=== PATIENT | female | born 1995 | race Caucasian/White ===

== ENCOUNTER 2017-11-27 02:50 | Emergency (ER) | payer OTHER, SELFPAY ==
[2017-11-27] MEDS ORDERED: METHYLPREDNISOLONE 125 MG INJ ONE (03:04)
[2017-11-27] MEDS ORDERED: FAMOTIDINE 20 MG/2 ML VIAL IV ONE (03:04)
[2017-11-27] MEDS ORDERED: NA CHLORIDE 0.9% 500 ML ONE (03:04)
--- NOTE | 2017-11-27 04:28 | ER ---
Nurse's Notes [facility] Name: Aric Banda Age: 22 yrs Sex: Female : 1995 Arrival Date: 11/27/2017 Time: 02:54 Bed 8 Private MD: Diagnosis: Acute allergic reaction to nuts Presentation: 11/27 03:11 Presenting complaint: Patient states: patient was at work and didn't realize that a ao candy she was eating was made with peanuts. Patient has nuts allegories. Patient started the develop a allergic reaction. tongue started to get swollen. Patient received 75 mg of Benadryl before she was sent to the hospital. Transition of care: patient was not received from another setting of care. Onset: The symptoms/episode began/occurred 3 hour(s) ago. Anaphylaxis evaluation, the patient reports or I have noted the following symptoms which indicate a significant risk of anaphylaxis: angioedema. Onset of symptoms was November 27, 2017 at 00:55. Initial Sepsis Screen: Does the patient meet any 2 criteria? No. Patient's initial sepsis screen is negative. Does the patient have a suspected source of infection? No. Patient's initial sepsis screen is negative. Care prior to arrival: Medication(s) given: Benadryl 75 mg. 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 - Social history:: Smoking status: Patient uses tobacco products, smokes one-half pack cigarettes per day, Patient uses alcohol, Patient/guardian denies using street drugs. - Family history:: not pertinent. - Hospitalizations: : No recent hospitalization is reported. Screenin:19 Abuse screen: Denies threats or abuse. Denies injuries from another. Nutritional ao screening: No deficits noted. Tuberculosis screening: No symptoms or risk factors identified. Fall Risk None identified. Assessment: 03:20 General: Appears in no apparent distress. comfortable, Behavior is calm, cooperative, ao appropriate for age. Pain: Denies pain. Neuro: Level of Consciousness is awake, alert, obeys commands, Oriented to person, place, time, situation, Appropriate for age Moves all extremities. Speech is normal. Cardiovascular: Capillary refill < 3 seconds Patient's skin is warm and dry. Respiratory: Airway. Respiratory: Airway is patent Respiratory effort is even, unlabored, Respiratory pattern is regular, Breath sounds are clear bilaterally. GI: Abdomen is non-distended. : No signs and/or symptoms were reported regarding the genitourinary system. EENT: No signs and/or symptoms were reported regarding the EENT system. Derm: Rash noted that is Face and other body parts. Musculoskeletal: No signs and/or symptoms reported regarding the musculoskeletal system. 04:00 Reassessment: Patient appears in no apparent distress at this time. Patient and/or ao family updated on plan of care and expected duration. Pain level reassessed. Patient is alert, oriented x 3, equal unlabored respirations, skin warm/dry/pink. Patient ambulated to the bathroom. Patient states that she is feeling better at this time. 04:41 Reassessment: Dc instructions given to patient and significant other. Patient agree ao with the POC and to follow up with PCP. Patient agree to get Epi pen and how to use it. Vital Signs: 03:12 BP 138 / 83; Pulse 94; Resp 18; Temp 97.2(TE); Pulse Ox 100% on R/A; Weight 54.43 kg ao (R); Height 5 ft. 3 in. (160.02 cm) (R); Pain 0/10; 04:00 BP 109 / 77; Pulse 87; Resp 16; Pulse Ox 100% on R/A; Pain 0/10; ao 03:12 Body Mass Index 21.26 (54.43 kg, 160.02 cm) ao ED Course: 02:54 Patient arrived in ED. al2 02:57 Matthew Shelton MD is Attending Physician. rn 03:01 Duran Alonso RN is Primary Nurse. ao 03:06 Inserted saline lock: 20 gauge in right antecubital area, using aseptic technique. mt 03:16 Triage completed. ao 03:21 Patient has correct armband on for positive identification. Pulse ox on. NIBP on. ao 03:22 Arm band placed on right wrist. Patient placed in an exam room, on a stretcher, on ao interventional cardiologist, on pulse oximetry, Patient notified of wait time. 04:42 No provider procedures requiring assistance completed. IV discontinued, intact, ao bleeding controlled, No redness/swelling at site. Pressure dressing applied. Administered Medications: 03:09 Drug: Pepcid 20 mg Route: IVP; Site: right antecubital; ao 04:43 Follow up: Response: No adverse reaction ao 03:10 Drug: SOLU-Medrol 125 mg Route: IVP; Site: right antecubital; ao 04:43 Follow up: Response: No adverse reaction ao 03:10 Drug: NS 0.9% 500 ml Route: IV; Rate: bolus; Site: right antecubital; ao 04:43 Follow up: IV Status: Completed infusion; IV Intake: 500ml ao Intake: 04:43 IV: 500ml; Total: 500ml. ao Outcome: 04:27 Discharge ordered by . rn 04:42 Discharged to home ambulatory. ao 04:42 Condition: stable 04:42 Discharge instructions given to patient, significant other, Instructed on discharge instructions, follow up and referral plans. Demonstrated understanding of instructions, follow-up care, medications, Prescriptions given X 2. 04:43 Patient left the ED. ao Signatures: Matthew Shelton MD MD rn Ortiz, Alex RN RUBY Dunaway, Mari Bernal, Joann birmingham
--- NOTE | 2017-11-27 04:28 | EDPHYS ---
Physician Documentation [facility] Name: Aric Banda Age: 22 yrs Sex: Female : 1995 Arrival Date: 11/27/2017 Time: 02:54 Bed 8 Private MD: ED Physician Matthew Shelton HPI: 11/27 03:41 This 22 yrs old Female presents to ER via Ambulatory with complaints of rn Allergic Reaction, SWOLLEN TONGUE, Hives. 03:41 The patient presents with itching, rash, swelling of the tongue. Onset: The rn symptoms/episode began/occurred just prior to arrival. Associated signs and symptoms: Pertinent positives: hives, swelling. Possible causes: nuts. At home the patient or guardian has treated the symptoms with Benadryl. Severity of symptoms: At their worst the symptoms were mild in the emergency department the symptoms are unchanged. The patient has experienced a previous episode. The patient has not recently seen a physician. 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 - Social history:: Smoking status: Patient uses tobacco products, smokes one-half pack cigarettes per day, Patient uses alcohol, Patient/guardian denies using street drugs. - Family history:: not pertinent. - Hospitalizations: : No recent hospitalization is reported. ROS: 03:41 Constitutional: Negative for fever, chills, and weight loss, Eyes: Negative for injury, rn pain, redness, and discharge, ENT: + swollen tongue Neck: Negative for injury, pain, and swelling, Cardiovascular: Negative for chest pain, palpitations, and edema, Respiratory: Negative for shortness of breath, cough, wheezing, and pleuritic chest pain, Abdomen/GI: Negative for abdominal pain, nausea, vomiting, diarrhea, and constipation, Back: Negative for injury and pain, MS/Extremity: Negative for injury and deformity, Skin: + hives Neuro: Negative for headache, weakness, numbness, tingling, and seizure. Exam: 03:41 Constitutional: This is a well developed, well nourished patient who is awake, alert, rn and in no acute distress. Head/Face: Normocephalic, atraumatic. Eyes: Pupils equal round and reactive to light, extra-ocular motions intact. Lids and lashes normal. Conjunctiva and sclera are non-icteric and not injected. Cornea within normal limits. Periorbital areas with no swelling, redness, or edema. ENT: Mild tongue swelling, no stridor, no uvula swelling Neck: Trachea midline, no thyromegaly or masses palpated, and no cervical lymphadenopathy. Supple, full range of motion without nuchal rigidity, or vertebral point tenderness. No Meningismus. Cardiovascular: Regular rate and rhythm with a normal S1 and S2. No gallops, murmurs, or rubs. Normal PMI, no JVD. No pulse deficits. Respiratory: Lungs have equal breath sounds bilaterally, clear to auscultation and percussion. No rales, rhonchi or wheezes noted. No increased work of breathing, no retractions or nasal flaring. Abdomen/GI: Soft, non-tender, with normal bowel sounds. No distension or tympany. No guarding or rebound. No evidence of tenderness throughout. MS/ Extremity: Pulses equal, no cyanosis. Neurovascular intact. Full, normal range of motion. Equal circumference. Neuro: Awake and alert, GCS 15, oriented to person, place, time, and situation. Cranial nerves II-XII grossly intact. Motor strength 5/5 in all extremities. Sensory grossly intact. Cerebellar exam normal. Normal gait. Vital Signs: 03:12 BP 138 / 83; Pulse 94; Resp 18; Temp 97.2(TE); Pulse Ox 100% on R/A; Weight 54.43 kg ao (R); Height 5 ft. 3 in. (160.02 cm) (R); Pain 0/10; 04:00 BP 109 / 77; Pulse 87; Resp 16; Pulse Ox 100% on R/A; Pain 0/10; ao 03:12 Body Mass Index 21.26 (54.43 kg, 160.02 cm) ao MDM: 02:57 Patient medically screened. rn 04:09 Differential diagnosis: angioedema, urticaria. Data reviewed: vital signs, nurses rn notes, and as a result, I will discharge patient. Counseling: I had a detailed discussion with the patient and/or guardian regarding: the historical points, exam findings, and any diagnostic results supporting the discharge/admit diagnosis, the need for outpatient follow up, to return to the emergency department if symptoms worsen or persist or if there are any questions or concerns that arise at home. Response to treatment: the patient's symptoms have markedly improved after treatment, and as a result, I will discharge patient. 11/27 04:06 Order name: Urine Dipstick--Ancillary (enter results) em1 11/27 04:06 Order name: Urine --Ancillary (enter results) em1 11/27 03:01 Order name: IV Start; Complete Time: 03:02 rn 11/27 04:02 Order name: Urine Dipstick-Ancillary (obtain specimen); Complete Time: 04:03 ao 11/27 04:02 Order name: Urine Test (obtain specimen); Complete Time: 04:02 ao Administered Medications: 03:09 Drug: Pepcid 20 mg Route: IVP; Site: right antecubital; ao 04:43 Follow up: Response: No adverse reaction ao 03:10 Drug: SOLU-Medrol 125 mg Route: IVP; Site: right antecubital; ao 04:43 Follow up: Response: No adverse reaction ao 03:10 Drug: NS 0.9% 500 ml Route: IV; Rate: bolus; Site: right antecubital; ao 04:43 Follow up: IV Status: Completed infusion; IV Intake: 500ml ao Disposition: 11/27/17 04:27 Discharged to Home. Impression: Acute allergic reaction to nuts. - Condition is Stable. - Discharge Instructions: Food Allergy, Food Allergy and Anaphylaxis. - Prescriptions for Prednisone 20 mg Oral Tablet - take 3 tablet by ORAL route once daily for 5 days; 15 tablet. EpiPen 0.3 mg Injection auto- injector - inject 1 pen by INTRAMUSCULAR route one time Inject into the outer portion of the thigh, through clothing if necessary. Indicated in the emergency treatment of allergic reactions; 2 packet. - Medication Reconciliation Form, Thank You Letter, Antibiotic Education, Prescription Opioid Use, Work release form, Family Work Release form. - Follow up: Private Physician; When: As needed; Reason: Recheck today's complaints, Re-evaluation by your physician. - Problem is new. - Symptoms have improved. Signatures: Dispatcher [employer] EDMatthew Patrick MD MD rn Ortiz, Alex, RN RN ao Corrections: (The following items were deleted from the chart) 04:43 04:27 11/27/2017 04:27 Discharged to Home. Impression: Acute allergic reaction to nuts. ao Condition is Stable. Forms are Medication Reconciliation Form, Thank You Letter, Antibiotic Education, Prescription Opioid Use. Follow up: Private Physician; When: As needed; Reason: Recheck today's complaints, Re-evaluation by your physician. Problem is new. Symptoms have improved. rn
[2017-11-27 06:46] LABS: Urine Blood NEGATIVE (NEG); Urine Glucose NEGATIVE (NEG); Urine Protein NEGATIVE (NEG)
== END 2017-11-27 04:43 | disposition home or self-care (01) ==
LOC: ER 02:50
DX: R21 Rash and other nonspecific skin eruption (principal); Z91.018 Allergy to other foods; F17.210 Nicotine dependence, cigarettes, uncomplicated
CPT/HCPCS: 81003; 81025; 96361; 96374; 96375; 99284; J2930

== ENCOUNTER 2018-07-02 22:45 | Emergency (ER) | payer BC, SELFPAY ==
--- OUTSIDE RECORDS SUMMARY | 2018-07-02 22:47 | XMS REPORT | Continuity of Care Document ---
:1995 Author Organization Interface Problems Problem Status Onset Classification Date Comments Source Date Reported Discharge 07/19/2016 The Diagnosis: 6 [place] Vaginal bleeding VAGINAL Active The BLEEDING 6 [place] Medications Medication Details Route Status Patient Ordering Order Source Instructions Provider Date Allergies, Adverse Reactions, Alerts Substance Category Reaction Severity Reaction Status Date Comments Source type Reported Food Nuts Assertion Drug Active The allergy [place] Immunizations Immunization Date Given Site Status Last Updated Comments Source Results Order Results Value Reference Date Interpretation Comments Source Name Range URINE UA WBC null 0 - 5 The AND 2015 [place] STOOL URINE UA Sq Epi Occasional Few /LPF The AND /LPF 2015 [place] STOOL URINE Micro? Performed The AND 2015 [place] STOOL *NA* (07/16/16 1:27 AM) URINE UA Mucus Few /LPF None Seen The AND /LPF 2015 [place] STOOL URINE UA RBC 2 /HPF 0 - 2 The AND 2015 [place] STOOL URINE UA Color Yellow Yellow The AND 2015 [place] STOOL *NA* (07/16/16 1:27 AM) URINE UA Turbidity Clear Clear The AND [place] STOOL (07/16/16 1:27 AM) URINE UA Glucose Negative Negative The AND mg/dL mg/dL 2015 [place] STOOL URINE UA Ketones Negative Negative The AND mg/dL mg/dL 2015 [place] STOOL URINE UA Spec Grav 1.019 <=1.030 The AND 2015 [place] STOOL URINE UA pH 6.5 5.0 - 8.0 The AND 2015 [place] STOOL URINE UA Protein Negative Negative The AND mg/dL mg/dL 2015 [place] STOOL URINE UA Leuk Est Negative Negative The AND [place] STOOL (07/16/16 1:27 AM) URINE UA Bili Negative Negative The AND 2016 [place] STOOL *NA* (07/16/16 1:27 AM) URINE UA Blood Trace Negative The AND 2016 [place] STOOL *ABN* (07/16/16 1:27 AM) URINE UA 3.0 mg/dL 0.1 - 1.0 The AND Urobilinogen 2016 [place] STOOL URINE UA Nitrite Negative Negative The AND 2015 [place] STOOL (07/16/16 1:27 AM) URINE U Preg Negative Negative The CHEM 2015 [place] (07/16/16 1:27 AM) Vital Signs Vital Sign Value Date Comments Source Weight 54.545 07/16/2016 [place] Height 157.48 cm 07/16/2016 [place] BMI Calculated 21.99 07/16/2016 [place] Respitory Rate 18 07/16/2016 [place] Temperature Oral (F) 98.2 F 07/16/2016 [place] Heart Rate 85 07/16/2016 [place] Systolic (mm Hg) 141 07/16/2016 [place] Diastolic (mm Hg) 80 07/16/2016 [place] Encounters Location Location Encounter Encounter Reason Attending ADM DC Status Source Details Type Number For Provider Date Date Visit [facility] Emergency [id number] Moira 07/16 07/16 [place] Parekh /2015 [facility] Procedures Procedure Code Date Perfomer Comments Source
--- OUTSIDE RECORDS SUMMARY | 2018-07-02 22:48 | XMS REPORT | Summary of Care ---
:1995 Author Organization [facility] Address [address] [place] [id number] Encounter HQ Encntr_alias(FIN) [id number] Date(s): 07/15/16 - 07/16/[address] [address]- Discharge Diagnosis: Vaginal bleeding Discharge Disposition: Home or Self Care Attending Physician: Moira Parekh MD Vital Signs Most recent to oldest [Reference Range]: 1 Height 157.48 cm (07/15/16 11:34 PM) Temperature Oral [96.4-99.1 DegF] 98.2 DegF (07/15/16 11:34 PM) Blood Pressure [90-140/60-90 mmHg] 141/80 mmHg *HI* (07/15/16 11:34 PM) Respiratory Rate [14-20 BRMIN] 18 BRMIN (07/15/16 11:34 PM) Peripheral Pulse Rate [60-100 bpm] 85 bpm (07/15/16 11:34 PM) Weight 54.545 kg (07/15/16 11:34 PM) Body Mass Index 21.99 m2 (07/15/16 11:34 PM) Problem List No data available for this section Allergies, Adverse Reactions, Alerts Substance Reaction Severity Status Food Nuts Active Medications No data available for this section Results URINE CHEM Most recent to oldest [Reference Range]: 1 U Preg [Negative] Negative (07/16/16 1:27 AM) URINE AND STOOL Most recent to oldest [Reference Range]: 1 UA Turbidity [Clear] Clear (07/16/16 1:27 AM) UA Color [Yellow] Yellow *NA* (07/16/16 1:27 AM) UA pH [5.0-8.0] 6.5 (07/16/16 1:27 AM) UA Spec Grav [<=1.030] 1.019 (07/16/16 1:27 AM) UA Glucose [Negative mg/dL] Negative mg/dL *NA* (07/16/16 1:27 AM) UA Blood [Negative] Trace *ABN* (07/16/16 1:27 AM) UA Ketones [Negative mg/dL] Negative mg/dL *NA* (07/16/16 1:27 AM) UA Protein [Negative mg/dL] Negative mg/dL (07/16/16 1:27 AM) UA Urobilinogen [0.1-1.0 mg/dL] 3.0 mg/dL *HI* (07/16/16 1:27 AM) UA Bili [Negative] Negative *NA* (07/16/16 1:27 AM) UA Leuk Est [Negative] Negative (07/16/16 1:27 AM) UA Nitrite [Negative] Negative (07/16/16 1:27 AM) UA WBC [0-5 /HPF] <1 /HPF (07/16/16 1:27 AM) UA RBC [0-2 /HPF] 2 /HPF (07/16/16 1:27 AM) UA Sq Epi [Few /LPF] Occasional /LPF *NA* (07/16/16 1:27 AM) UA Mucus [None Seen /LPF] Few /LPF *NA* (07/16/16 1:27 AM) Micro? Performed *NA* (07/16/16 1:27 AM) Immunizations No data available for this section Procedures No data available for this section Social History Social History Type Response Smoking Status Unknown if ever smoked; Exposure to Tobacco Smoke None; Cigarette Smoking Last 365 Days No; Reg Smoking Cessation Counseling No Assessment and Plan No data available for this section
--- NOTE | 2018-07-02 23:21 | EDPHYS ---
Physician Documentation [facility] Name: Aric Banda Age: 23 yrs Sex: Female : 1995 Arrival Date: 07/02/2018 Time: 22:46 Bed 20 Private MD: ED Physician Percy Tierney HPI: 07/02 23:17 This 23 yrs old Female presents to ER via Ambulatory with complaints of Hand ma2 Pain. 23:17 This 23 yrs old Female presents to ER via Ambulatory with complaints of Hand ma2 Pain. 23:17 The patient or guardian reports pain. The complaints affect the right arm. Onset: The ma2 symptoms/episode began/occurred suddenly, 1 hour(s) ago. Associated signs and symptoms: Pertinent negatives: cyanosis distally, decreased sensation distally, nausea, numbness distally, tingling distally, vomiting. Severity of symptoms: At their worst the symptoms were moderate, in the emergency department the symptoms are unchanged. The patient has not experienced similar symptoms in the past. was stretching right hand and had sudden pain at the right forearm x 30 min constant. 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 - Social history:: Smoking status: Patient uses tobacco products, smokes one-half pack cigarettes per day, Patient/guardian denies using alcohol, street drugs, The patient lives with family. - Ebola Screening: : No symptoms or risks identified at this time. - Family history:: not pertinent. ROS: 23:17 Constitutional: Negative for fever, chills, and weight loss, Eyes: Negative for injury, ma2 pain, redness, and discharge, MS/Extremity: has right fore arm tenderness over the muscles otherwise Negative for injury and deformity, Skin: Negative for injury, rash, and discoloration, Neuro: Negative for headache, weakness, numbness, tingling, and seizure. Exam: 23:17 Constitutional: This is a well developed, well nourished patient who is awake, alert, ma2 and in no acute distress. Head/Face: Normocephalic, atraumatic. Eyes: Pupils equal round and reactive to light, extra-ocular motions intact. Lids and lashes normal. Conjunctiva and sclera are non-icteric and not injected. Cornea within normal limits. Periorbital areas with no swelling, redness, or edema. Cardiovascular: Regular rate and rhythm with a normal S1 and S2. No gallops, murmurs, or rubs. Normal PMI, no JVD. No pulse deficits. Skin: Warm, dry with normal turgor. Normal color with no rashes, no lesions, and no evidence of cellulitis. MS/ Extremity: Pulses equal, no cyanosis. Neurovascular intact. Full, normal range of motion. Neuro: Awake and alert, GCS 15, oriented to person, place, time, and situation. Cranial nerves II-XII grossly intact. Motor strength 5/5 in all extremities. Sensory grossly intact. Cerebellar exam normal. Normal gait. Vital Signs: 23:04 BP 127 / 86; Pulse 90; Resp 16; Temp 98; Pulse Ox 100% on R/A; Weight 56.7 kg; Height 5 lp1 ft. 2 in. (157.48 cm); Pain 3/10; 23:04 Body Mass Index 22.86 (56.70 kg, 157.48 cm) lp1 MDM: 22:57 Patient medically screened. ma2 23:17 Differential diagnosis: contusion, abrasion, tendonitis, msk pain. Data reviewed: vital ma2 signs, nurses notes. Counseling: I had a detailed discussion with the patient and/or guardian regarding: the historical points, exam findings, and any diagnostic results supporting the discharge/admit diagnosis, the presence of at least one elevated blood pressure reading (>120/80) during this emergency department visit, the need for outpatient follow up. Response to treatment: the patient's symptoms have markedly improved after treatment. 07/02 23:17 Order name: Jin Wrap; Complete Time: 23:34 ma2 Administered Medications: 23:30 Drug: [place] 5 mg-325 mg 1 tabs Route: PO; lp1 23:35 Follow up: Response: Medication administered at discharge. lp1 Disposition: 07/02/18 23:20 Discharged to Home. Impression: Muscle spasm. - Condition is Stable. - Discharge Instructions: Musculoskeletal Pain. - Prescriptions for Tylenol- Codeine #3 300-30 mg Oral Tablet - take 2 tablet by ORAL route every 6 hours As needed; 30 tablet. - Medication Reconciliation Form, Thank You Letter, Antibiotic Education, Prescription Opioid Use form. - Follow up: Private Physician; When: Tomorrow; Reason: Continuance of care. Signatures: Jessica Rodrigues RN RN lp1 Percy Tierney MD MD ma2 Corrections: (The following items were deleted from the chart) 23:36 23:20 07/02/2018 23:20 Discharged to Home. Impression: Muscle spasm. Condition is lp1 Stable. Forms are Medication Reconciliation Form, Thank You Letter, Antibiotic Education, Prescription Opioid Use. Follow up: Private Physician; When: Tomorrow; Reason: Continuance of care. ma2
--- NOTE | 2018-07-02 23:21 | ER ---
Nurse's Notes [facility] Name: Aric Banda Age: 23 yrs Sex: Female : 1995 Arrival Date: 07/02/2018 Time: 22:46 Bed 20 Private MD: Diagnosis: Muscle spasm Presentation: 07/02 23:03 Presenting complaint: Patient states: Pain to right wrist that began suddenly; Denies lp1 any trauma; ROM intact, states knot on wrist. Transition of care: patient was not received from another setting of care. Onset of symptoms was July 02, 2018 at 22:30. Risk Assessment: Do you want to hurt yourself or someone else? Patient reports no desire to harm self or others. Initial Sepsis Screen: Does the patient meet any 2 criteria? No. Patient's initial sepsis screen is negative. Does the patient have a suspected source of infection? No. Patient's initial sepsis screen is negative. Care prior to arrival: None. 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 - Social history:: Smoking status: Patient uses tobacco products, smokes one-half pack cigarettes per day, Patient/guardian denies using alcohol, street drugs, The patient lives with family. - Ebola Screening: : No symptoms or risks identified at this time. - Family history:: not pertinent. Screenin:07 Abuse screen: Denies threats or abuse. Denies injuries from another. Nutritional lp1 screening: No deficits noted. Tuberculosis screening: No symptoms or risk factors identified. Fall Risk None identified. Assessment: 23:06 General: Appears in no apparent distress. Behavior is appropriate for age. Pain: lp1 Complains of pain in palmar aspect of right wrist Pain currently is 3 out of 10 on a pain scale. Neuro: No deficits noted. Cardiovascular: No deficits noted. Respiratory: No deficits noted. GI: No deficits noted. : No deficits noted. EENT: No deficits noted. Derm: Skin is pink, warm \T\ dry. Musculoskeletal: Circulation, motion, and sensation intact. Range of motion: limited in right wrist. Vital Signs: 23:04 BP 127 / 86; Pulse 90; Resp 16; Temp 98; Pulse Ox 100% on R/A; Weight 56.7 kg; Height 5 lp1 ft. 2 in. (157.48 cm); Pain 3/10; 23:04 Body Mass Index 22.86 (56.70 kg, 157.48 cm) lp1 ED Course: 22:46 Patient arrived in ED. al2 22:57 Percy Tierney MD is Attending Physician. ma2 23:02 Jessica Rodrigues RN is Primary Nurse. lp1 23:04 Triage completed. lp1 23:04 Arm band placed on left wrist. lp1 23:08 Patient has correct armband on for positive identification. lp1 23:08 Wound care: ice pack applied. lp1 23:30 Jin wrap to right wrist. lp1 23:35 No provider procedures requiring assistance completed. Patient did not have IV access lp1 during this emergency room visit. Administered Medications: 23:30 Drug: [place] 5 mg-325 mg 1 tabs Route: PO; lp1 23:35 Follow up: Response: Medication administered at discharge. lp1 Outcome: 23:20 Discharge ordered by . ma2 23:36 Discharged to home ambulatory, with family. lp1 23:36 Condition: good 23:36 Discharge instructions given to patient, Instructed on discharge instructions, follow up and referral plans. medication usage, Demonstrated understanding of instructions, follow-up care, medications, Prescriptions given X 1. 23:36 Patient left the ED. lp1 Signatures: Jessica Rodrigues RN RN lp1 Joann Bernal al Percy Tierney MD MD la2 Corrections: (The following items were deleted from the chart) 23:35 23:04 BP 127 / 86; Pulse 90bpm; Resp 16bpm; Pulse Ox 100% RA; 56.7 kg; Height 5 ft. 2 lp1 in.; BMI: 22.8; Pain 3/10; lp1
[2018-07-02] MEDS ORDERED: HYDROCODONE/APAP 5/325 MG TAB ONE (23:37)
== END 2018-07-02 23:36 | disposition home or self-care (01) ==
LOC: ER 22:45
DX: M62.838 Other muscle spasm (principal); F17.210 Nicotine dependence, cigarettes, uncomplicated; Z88.0 Allergy status to penicillin
CPT/HCPCS: 99284

== ENCOUNTER 2018-10-27 01:08 | Emergency (ER) | payer BC, SELFPAY ==
[2018-10-27 02:23] LABS: Absolute Lymphocytes (CBC) 4.1 K/uL (0.7-4.9); Absolute Monocytes 1.5 K/uL (0.1-1.3); Absolute Neutrophil 8.6 K/uL (1.8-8.0); Basophils % 0.7 % (0-1.3); Eosinophils % 4.5 % (0-4.4); Hematocrit 50.8 % (36.0-45.0); Lymphocytes % 27.4 % (15.3-44.8); MPV 7.7 fL (7.6-11.3); Monocytes % 10.3 % (3.3-12.3)
[2018-10-27] MEDS ORDERED: METHYLPREDNISOLONE 125 MG INJ ONE (02:36)
[2018-10-27] MEDS ORDERED: ALBUTEROL 2.5 MG/3 ML NEB SOL ONE ×2 (02:37→04:17)
[2018-10-27] MEDS ORDERED: IPRATROPIUM BROM 0.5MG/2.5ML ONE (02:37)
[2018-10-27] MEDS ORDERED: predniSONE 20 MG TAB ONE (02:37)
[2018-10-27] MEDS ORDERED: NA CHLORIDE 0.9% 1,000 ML ONE (02:37)
[2018-10-27] MEDS ORDERED: AZITHROMYCIN 500 MG INJ IVPB ONE (02:37)
[2018-10-27] MEDS ORDERED: NA CHLORIDE 0.9% 250 ML ONE (02:37)
[2018-10-27] MEDS ORDERED: CEFTRIAXONE/SWI 1gm 1 GM/10 ML SYR ONE (02:38)
[2018-10-27 02:41] LABS: ALT/SGPT 22 U/L (12-78); AST/SGOT 21 U/L (15-37); Alkaline Phosphatase 133 U/L (45-117); BUN Blood Urea Nitrogen 4 mg/dL (7-18); Bicarbonate 24 mmol/L (21-32); Bilirubin Total 0.3 mg/dL (0.2-1.0); Glucose Level 98 mg/dL (74-106); Potassium 4.3 mmol/L (3.5-5.1); Protein, Total 8.5 g/dL (6.4-8.2); Sodium Level 138 mmol/L (136-145)
--- NOTE | 2018-10-27 03:50 | EDPHYS ---
Physician Documentation [facility] Name: Aric Banda Age: 23 yrs Sex: Female : 1995 Arrival Date: 10/27/2018 Time: 01:13 Bed 18 Private MD: DEMARCUS Physician Micha Mcknight HPI: 10/27 02:03 This 23 yrs old Female presents to ER via Ambulatory with complaints of Chest batsheva Wall Pain, Cough. 02:03 The patient or guardian reports chest pain that is located primarily in the anterior batsheva chest wall, bilaterally. The pain does not radiate. Associated signs and symptoms: The patient has no apparent associated signs or symptoms. Modifying factors: The symptoms are alleviated by nothing. the symptoms are aggravated by cough, deep breath, exertion. Severity of pain: At its worst the pain was mild in the emergency department the pain is unchanged. The patient has not experienced similar symptoms in the past. 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 - Social history:: Smoking status: Patient uses tobacco products, smokes one-half pack cigarettes per day, Patient uses alcohol, occasionally. Patient/guardian denies using street drugs, IV drugs. - Ebola Screening: : No symptoms or risks identified at this time. - Family history:: not pertinent. ROS: 02:03 Constitutional: Negative for fever, chills, and weight loss, Eyes: Negative for injury, batsheva pain, redness, and discharge, ENT: Negative for injury, pain, and discharge, Neck: Negative for injury, pain, and swelling, Cardiovascular: Negative for chest pain, palpitations, and edema, Abdomen/GI: Negative for abdominal pain, nausea, vomiting, diarrhea, and constipation, Back: Negative for injury and pain, : Negative for injury, bleeding, discharge, and swelling, MS/Extremity: Negative for injury and deformity, Skin: Negative for injury, rash, and discoloration, Neuro: Negative for headache, weakness, numbness, tingling, and seizure, Psych: Negative for depression, anxiety, suicide ideation, homicidal ideation, and hallucinations, Allergy/Immunology: Negative for hives, rash, and allergies, Endocrine: Negative for neck swelling, polydipsia, polyuria, polyphagia, and marked weight changes, Hematologic/Lymphatic: Negative for swollen nodes, abnormal bleeding, and unusual bruising. 02:03 Respiratory: Positive for cough, shortness of breath, wheezing, inspiratory, expiratory. Exam: 02:03 Constitutional: This is a well developed, well nourished patient who is awake, alert, batsheva and in no acute distress. Head/Face: Normocephalic, atraumatic. Eyes: Pupils equal round and reactive to light, extra-ocular motions intact. Lids and lashes normal. Conjunctiva and sclera are non-icteric and not injected. Cornea within normal limits. Periorbital areas with no swelling, redness, or edema. ENT: Nares patent. No nasal discharge, no septal abnormalities noted. Tympanic membranes are normal and external auditory canals are clear. Oropharynx with no redness, swelling, or masses, exudates, or evidence of obstruction, uvula midline. Mucous membranes moist. Neck: Trachea midline, no thyromegaly or masses palpated, and no cervical lymphadenopathy. Supple, full range of motion without nuchal rigidity, or vertebral point tenderness. No Meningismus. Chest/axilla: Normal chest wall appearance and motion. Nontender with no deformity. No lesions are appreciated. Cardiovascular: Regular rate and rhythm with a normal S1 and S2. No gallops, murmurs, or rubs. Normal PMI, no JVD. No pulse deficits. Abdomen/GI: Soft, non-tender, with normal bowel sounds. No distension or tympany. No guarding or rebound. No evidence of tenderness throughout. Back: No spinal tenderness. No costovertebral tenderness. Full range of motion. Skin: Warm, dry with normal turgor. Normal color with no rashes, no lesions, and no evidence of cellulitis. MS/ Extremity: Pulses equal, no cyanosis. Neurovascular intact. Full, normal range of motion. Neuro: Awake and alert, GCS 15, oriented to person, place, time, and situation. Cranial nerves II-XII grossly intact. Motor strength 5/5 in all extremities. Sensory grossly intact. Cerebellar exam normal. Normal gait. Psych: Awake, alert, with orientation to person, place and time. Behavior, mood, and affect are within normal limits. 02:03 Respiratory: mild respiratory distress is noted, Respirations: labored breathing, that is mild, that is moderate, Breath sounds: decreased breath sounds, rhonchi, wheezing: inspiratory expiratory Vital Signs: 01:33 BP 121 / 92; Pulse 103; Resp 20; Temp 98.5; Pulse Ox 98% on R/A; Weight 54.43 kg; mg2 Height 5 ft. 3 in. (160.02 cm); Pain 7/10; 03:30 BP 128 / 62; Pulse 90; Resp 19; Pulse Ox 95% on R/A; bb 04:50 BP 124 / 67; Pulse 121; Resp 18 S; Temp 98.3(O); Pulse Ox 97% on R/A; bb 01:33 Body Mass Index 21.26 (54.43 kg, 160.02 cm) mg2 MDM: 01:19 Patient medically screened. [facility] 02:05 Data reviewed: vital signs, nurses notes, lab test result(s), radiologic studies, plain batsheva films. 10/27 02:03 Order name: CBC with Diff; Complete Time: 03:48 [facility] 10/27 02:03 Order name: Comprehensive Metabolic Panel; Complete Time: 03:48 [facility] 10/27 02:03 Order name: Chest Pa And Lat (2 Views) XRAY [facility] 10/27 02:03 Order name: Flu; Complete Time: 03:48 [facility] 10/27 02:03 Order name: Urine Test (obtain specimen) [facility] 10/27 02:03 Order name: Urine Dipstick-Ancillary (obtain specimen) batsheva Administered Medications: 02:42 Drug: SOLU-Medrol 125 mg Route: IVP; Site: right antecubital; mg2 04:07 Follow up: Response: No adverse reaction bb 04:33 Follow up: Response: No adverse reaction bb 02:45 Drug: Albuterol - atroVENT (3:1) (2.5 mg - 0.5 mg) 3 ml Route: Nebulizer; mg2 04:07 Follow up: Response: No adverse reaction bb 02:45 Drug: Zithromax 500 mg Route: IVPB; Infused Over: 1 hrs; Site: left hand; mg2 03:45 Follow up: IV Status: Completed infusion; IV Intake: 250ml bb 02:50 Drug: NS 0.9% 1000 ml Route: IV; Rate: 1 bolus; Site: left hand; mg2 03:50 Follow up: IV Status: Completed infusion; IV Intake: 1000ml bb 02:51 Drug: predniSONE 40 mg Route: PO; mg2 04:35 Follow up: Response: No adverse reaction bb 04:00 Drug: Rocephin - (cefTRIAXone) 1 grams Route: IVPB; Infused Over: 30 mins; Site: right rr5 hand; 04:05 Follow up: IV Status: Completed infusion; IV Intake: 10ml bb 04:11 Drug: Albuterol 5 mg Route: Inhalation; rr5 04:35 Follow up: Response: No adverse reaction bb Disposition: 10/27/18 03:49 Discharged to Home. Impression: Bronchitis, not specified as acute or chronic, Tobacco abuse counseling, Tobacco use, Pneumonia due to other specified bacteria. - Condition is Stable. - Discharge Instructions: Acute Bronchitis, Adult, How to Use an Inhaler, Steps to Quit Smoking, Smoking Hazards, Upper Respiratory Infection, Adult, Upper Respiratory Infection, Adult, [id number], Community-Acquired Pneumonia, Adult, [id number]. - Prescriptions for Albuterol Sulfate 2.5 mg /3 mL (0.083 %) Inhalation Solution for Nebulization - inhale 1 unit by NEBULIZATION route every 8 hours As needed; 1 box. Prednisone 20 mg Oral Tablet - take 2 tablet by ORAL route once daily for 5 days; 10 tablet. Albuterol Sulfate 90 mcg/actuation - inhale 1-2 puff by INHALATION route every 4-6 hours; 1 Inhaler. Zithromax 500 mg Oral Tablet - take 1 tablet by ORAL route once daily for 5 days; 5 tablet. - Medication Reconciliation Form, Thank You Letter, Antibiotic Education, Prescription Opioid Use form. - Follow up: Private Physician; When: 2 - 3 days; Reason: Recheck today's complaints, Continuance of care, Re-evaluation by your physician. - Problem is new. - Symptoms have improved. Signatures: Dispatcher [employer] EDMA Micha Mcknight MD MD cha Ballard, Brenda, RN RN bb Shoaib Luong, RN RN mg2 Jian Velazquez, RN RN rr5 Corrections: (The following items were deleted from the chart) 04:53 03:49 10/27/2018 03:49 Discharged to Home. Impression: Bronchitis, not specified as bb acute or chronic; Tobacco abuse counseling; Tobacco use; Pneumonia due to other specified bacteria. Condition is Stable. Discharge Instructions: Acute Bronchitis, Adult, How to Use an Inhaler, Steps to Quit Smoking, Smoking Hazards, Upper Respiratory Infection, Adult, Upper Respiratory Infection, Adult, [id number]. Prescriptions for Albuterol Sulfate 2.5 mg /3 mL (0.083 %) Inhalation Solution for Nebulization - inhale 1 unit by NEBULIZATION route every 8 hours As needed; 1 box, Prednisone 20 mg Oral Tablet - take 2 tablet by ORAL route once daily for 5 days; 10 tablet, Albuterol Sulfate 90 mcg/actuation - inhale 1-2 puff by INHALATION route every 4-6 hours; 1 Inhaler, Zithromax 500 mg Oral Tablet - take 1 tablet by ORAL route once daily for 5 days; 5 tablet. and Forms are Medication Reconciliation Form, Thank You Letter, Antibiotic Education, Prescription Opioid Use. Follow up: Private Physician; When: 2 - 3 days; Reason: Recheck today's complaints, Continuance of care, Re-evaluation by your physician. Problem is new. Symptoms have improved. [facility] 04:53 04:53 10/27/2018 03:49 Discharged to Home. Impression: Bronchitis, not specified as bb acute or chronic; Tobacco abuse counseling; Tobacco use; Pneumonia due to other specified bacteria. Condition is Stable. Discharge Instructions: Acute Bronchitis, Adult, How to Use an Inhaler, Steps to Quit Smoking, Smoking Hazards, Upper Respiratory Infection, Adult, Upper Respiratory Infection, Adult, Sbrq-to-Guni, Community-Acquired Pneumonia, Adult, Gzpr-[id number]. Prescriptions for Albuterol Sulfate 2.5 mg /3 mL (0.083 %) Inhalation Solution for Nebulization - inhale 1 unit by NEBULIZATION route every 8 hours As needed; 1 box, Prednisone 20 mg Oral Tablet - take 2 tablet by ORAL route once daily for 5 days; 10 tablet, Albuterol Sulfate 90 mcg/actuation - inhale 1-2 puff by INHALATION route every 4-6 hours; 1 Inhaler, Zithromax 500 mg Oral Tablet - take 1 tablet by ORAL route once daily for 5 days; 5 tablet. and Forms are Medication Reconciliation Form, Thank You Letter, Antibiotic Education, Prescription Opioid Use. Follow up: Private Physician; When: 2 - 3 days; Reason: Recheck today's complaints, Continuance of care, Re-evaluation by your physician. Problem is new. Symptoms have improved. bb
--- NOTE | 2018-10-27 03:50 | ER ---
Nurse's Notes [facility] Name: Aric Banda Age: 23 yrs Sex: Female : 1995 Arrival Date: 10/27/2018 Time: 01:13 Bed 18 Private MD: Diagnosis: Bronchitis, not specified as acute or chronic;Tobacco abuse counseling;Tobacco use;Pneumonia due to other specified bacteria Presentation: 10/27 01:31 Presenting complaint: Patient states: i have chest pain, cough and shortness of breath mg2 for months now. i was diagnosed with bronchitis and asthma in [place] 2 months ago and they put me on antibiotic. Transition of care: patient was not received from another setting of care. Onset of symptoms was July 2018. Risk Assessment: Do you want to hurt yourself or someone else? Patient reports no desire to harm self or others. Initial Sepsis Screen: Does the patient meet any 2 criteria? No. Patient's initial sepsis screen is negative. Does the patient have a suspected source of infection? No. Patient's initial sepsis screen is negative. Care prior to arrival: None. 01:31 Method Of Arrival: Ambulatory mg2 01:31 Acuity: SIERRA 3 mg2 Triage Assessment: 01:35 General: Appears in no apparent distress. comfortable, Behavior is anxious. Pain: mg2 Complains of pain in chest Pain does not radiate. Pain currently is 7 out of 10 on a pain scale. Quality of pain is described as crampy, Pain began gradually. EENT: No signs and/or symptoms were reported regarding the EENT system. Neuro: Level of Consciousness is awake, alert, obeys commands, Oriented to person, place, time, situation. Cardiovascular: Capillary refill < 3 seconds Patient's skin is warm and dry. Cardiovascular: Reports diaphoresis. Respiratory: Reports shortness of breath at rest cough that is Airway is patent Respiratory effort is even, unlabored, Respiratory pattern is regular, symmetrical. GI: No signs and/or symptoms were reported involving the gastrointestinal system. : No signs and/or symptoms were reported regarding the genitourinary system. Derm: Skin is intact, is healthy with good turgor, Skin is pink, warm \T\ dry. normal. Musculoskeletal: Circulation, motion, and sensation intact. Capillary refill < 3 seconds. 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 - Social history:: Smoking status: Patient uses tobacco products, smokes one-half pack cigarettes per day, Patient uses alcohol, occasionally. Patient/guardian denies using street drugs, IV drugs. - Ebola Screening: : No symptoms or risks identified at this time. - Family history:: not pertinent. Screenin:37 Abuse screen: Denies threats or abuse. Denies injuries from another. Nutritional mg2 screening: No deficits noted. Tuberculosis screening: No symptoms or risk factors identified. Fall Risk None identified. Assessment: 01:37 Reassessment: see triage assessment. mg2 02:50 Reassessment: Patient and/or family updated on plan of care and expected duration. Pain bb level reassessed. Patient is alert, oriented x 3, equal unlabored respirations, skin warm/dry/pink. 03:30 Reassessment: Patient and/or family updated on plan of care and expected duration. Pain bb level reassessed. Patient is alert, oriented x 3, equal unlabored respirations, skin warm/dry/pink. 04:49 Reassessment: Patient and/or family updated on plan of care and expected duration. Pain bb level reassessed. pt states she is feeling a little better resp unlabored, bilateral breath sounds coarse without wheezes Pt verbalized understanding of and agrees to plan of care discharge instructions given pt ambulated with steady gait to exit accompanied by friend. Vital Signs: 01:33 BP 121 / 92; Pulse 103; Resp 20; Temp 98.5; Pulse Ox 98% on R/A; Weight 54.43 kg; mg2 Height 5 ft. 3 in. (160.02 cm); Pain 7/10; 03:30 BP 128 / 62; Pulse 90; Resp 19; Pulse Ox 95% on R/A; bb 04:50 BP 124 / 67; Pulse 121; Resp 18 S; Temp 98.3(O); Pulse Ox 97% on R/A; bb 01:33 Body Mass Index 21.26 (54.43 kg, 160.02 cm) mg2 ED Course: 01:13 Patient arrived in ED. am2 01:19 Micha Mcknight MD is Attending Physician. batsheva 01:33 Triage completed. mg2 01:35 Arm band placed on. mg2 01:37 Patient has correct armband on for positive identification. Pulse ox on. NIBP on. mg2 02:09 Lluvia Soto, RN is Primary Nurse. ea 02:19 Inserted saline lock: 22 gauge in right antecubital area, using aseptic technique. ea Blood collected. 02:20 Patient maintains SpO2 saturation greater than 95% on room air. ea 02:23 Patient moved to radiology via wheelchair. kw 02:23 X-ray completed. Patient tolerated procedure well. kw 02:23 Patient moved back from radiology. kw 02:24 Chest Pa And Lat (2 Views) XRAY In Process Unspecified. EDMS 04:45 IV discontinued, intact, bleeding controlled, No redness/swelling at site. Pressure bb dressing applied. 04:52 No provider procedures requiring assistance completed. bb Administered Medications: 02:42 Drug: SOLU-Medrol 125 mg Route: IVP; Site: right antecubital; mg2 04:07 Follow up: Response: No adverse reaction bb 04:33 Follow up: Response: No adverse reaction bb 02:45 Drug: Albuterol - atroVENT (3:1) (2.5 mg - 0.5 mg) 3 ml Route: Nebulizer; mg2 04:07 Follow up: Response: No adverse reaction bb 02:45 Drug: Zithromax 500 mg Route: IVPB; Infused Over: 1 hrs; Site: left hand; mg2 03:45 Follow up: IV Status: Completed infusion; IV Intake: 250ml bb 02:50 Drug: NS 0.9% 1000 ml Route: IV; Rate: 1 bolus; Site: left hand; mg2 03:50 Follow up: IV Status: Completed infusion; IV Intake: 1000ml bb 02:51 Drug: predniSONE 40 mg Route: PO; mg2 04:35 Follow up: Response: No adverse reaction bb 04:00 Drug: Rocephin - (cefTRIAXone) 1 grams Route: IVPB; Infused Over: 30 mins; Site: right rr5 hand; 04:05 Follow up: IV Status: Completed infusion; IV Intake: 10ml bb 04:11 Drug: Albuterol 5 mg Route: Inhalation; rr5 04:35 Follow up: Response: No adverse reaction bb Intake: 03:45 IV: 250ml; Total: 250ml. bb 03:50 IV: 1000ml; Total: 1250ml. bb 04:05 IV: 10ml; Total: 1260ml. bb Outcome: 03:49 Discharge ordered by . batsheva 04:52 Discharged to home ambulatory, with family. bb 04:52 Condition: stable 04:52 Discharge instructions given to patient, Instructed on discharge instructions, follow up and referral plans. medication usage, Demonstrated understanding of instructions, follow-up care, medications, Prescriptions given X 4. 04:53 Patient left the ED. bb Signatures: Dispatcher [employer] EDMS Micha Mcknight MD MD cha Ballard, Brenda, RN RN bb Michelle Crow Amanda am2 Antunez, Elena RN RN Shoaib Carlson RN RN Jian Jolley RN RN rr5 Corrections: (The following items were deleted from the chart) 05:13 05:12 BP 128 / 62; Pulse 90bpm; Resp 19bpm; Pulse Ox 95% RA; bb bb
--- NOTE | 2018-10-27 08:08 | RAD REPORT ---
EXAM DESCRIPTION: Ana Diallo (2 Views)10/27/2018 2:25 am CLINICAL HISTORY: Cough COMPARISON: None FINDINGS: The lungs appear clear of acute infiltrate. The heart is normal size IMPRESSION: No acute abnormalities displayed
== END 2018-10-27 04:53 | disposition home or self-care (01) ==
LOC: ER 01:08
DX: J40 Bronchitis, not specified as acute or chronic (principal); J18.9 Pneumonia, unspecified organism; F17.210 Nicotine dependence, cigarettes, uncomplicated; Z71.6 Tobacco abuse counseling; J45.909 Unspecified asthma, uncomplicated; Z91.010 Allergy to peanuts
CPT/HCPCS: 36415; 71046; 80053; 85025; 87804; 94640; 99285; J0456; J0696; J2930; J7030; J7512

== ENCOUNTER 2018-11-15 06:07 | Emergency (ER) | payer SELFPAY ==
--- OUTSIDE RECORDS SUMMARY | 2018-11-15 06:10 | XMS REPORT | Continuity of Care Document ---
:1995 Author Organization Interface Problems Problem Status Onset Classification Date Comments Source Date Reported Discharge 07/19/2016 The Diagnosis: 6 [place] Vaginal bleeding VAGINAL Active The BLEEDING 6 [place] Medications Medication Details Route Status Patient Ordering Order Source Instructions Provider Date Allergies, Adverse Reactions, Alerts Substance Category Reaction Severity Reaction Status Date Comments Source type Reported Food Nuts Assertion Drug Active The allergy [place] Immunizations Immunization Date Given Site Status Last Updated Comments Source Results Order Results Value Reference Date Interpretation Comments Source Name Range URINE UA WBC null 0 - 5 The AND 2015 [place] STOOL URINE UA Sq Epi Occasional Few /LPF The AND /LPF 2015 [place] STOOL URINE Micro? Performed The AND 2015 [place] STOOL *NA* (07/16/16 1:27 AM) URINE UA Mucus Few /LPF None Seen The AND /LPF 2015 [place] STOOL URINE UA RBC 2 /HPF 0 - 2 The AND 2015 [place] STOOL URINE UA Color Yellow Yellow The AND 2015 [place] STOOL *NA* (07/16/16 1:27 AM) URINE UA Turbidity Clear Clear The AND [place] STOOL (07/16/16 1:27 AM) URINE UA Glucose Negative Negative The AND mg/dL mg/dL 2015 [place] STOOL URINE UA Ketones Negative Negative The AND mg/dL mg/dL 2015 [place] STOOL URINE UA Spec Grav 1.019 <=1.030 The AND 2015 [place] STOOL URINE UA pH 6.5 5.0 - 8.0 The AND 2015 [place] STOOL URINE UA Protein Negative Negative The AND mg/dL mg/dL 2015 [place] STOOL URINE UA Leuk Est Negative Negative The AND 2015[place] STOOL (07/16/16 1:27 AM) URINE UA Bili Negative Negative The AND 2016 [place] STOOL *NA* (07/16/16 1:27 AM) URINE UA Blood Trace Negative The AND 2016 [place] STOOL *ABN* (07/16/16 1:27 AM) URINE UA 3.0 mg/dL 0.1 - 1.0 The AND Urobilinogen 2016 [place] STOOL URINE UA Nitrite Negative Negative The AND 2015 [place] STOOL (07/16/16 1:27 AM) URINE U Preg Negative Negative The CHEM 2015 [place] (07/16/16 1:27 AM) Vital Signs Vital Sign Value Date Comments Source Weight 54.545 07/16/2016 [place] Height 157.48 cm 07/16/2016 [place] BMI Calculated 21.99 07/16/2016 [place] Respitory Rate 18 07/16/2016 [place] Temperature Oral (F) 98.2 F 07/16/2016 [place] Heart Rate 85 07/16/2016 [place] Systolic (mm Hg) 141 07/16/2016 [place] Diastolic (mm Hg) 80 07/16/2016 [place] Encounters Location Location Encounter Encounter Reason Attending ADM DC Status Source Details Type Number For Provider Date Date Visit [facility] Emergency [id number] [place] 07/16 07/16 [place] /2015 [facility] Procedures Procedure Code Date Perfomer Comments Source
--- NOTE | 2018-11-15 08:24 | RAD REPORT ---
EXAM DESCRIPTION: RAD - Foot Left 3 View - 11/15/2018 7:05 am CLINICAL HISTORY: PAIN Trauma, pain COMPARISON: No comparisons FINDINGS: No acute fracture or dislocation seen. Small posterior calcaneal spur.
--- NOTE | 2018-11-15 08:27 | EDPHYS ---
Physician Documentation [facility] Name: Aric Banda Age: 23 yrs Sex: Female : 1995 Arrival Date: 11/15/2018 Time: 06:08 Bed 14 Private MD: ED Physician Micha Mcknight HPI: 11/15 06:23 This 23 yrs old Female presents to ER via Ambulatory with complaints of foot kb Injury. 06:24 The patient presents with an injury, pain, that is acute, swelling, tenderness. The kb complaints affect the left foot. Context: The problem was sustained at home, resulted from jumping on trampoline at [employer] and accidentally landed on the platform, the patient can fully bear weight, the patient is able to ambulate. Onset: The symptoms/episode began/occurred 2 day(s) ago. Modifying factors: The symptoms are alleviated by nothing, the symptoms are aggravated by weight bearing. Associated signs and symptoms: The patient has no apparent associated signs or symptoms. Severity of symptoms: At their worst the symptoms were moderate, in the emergency department the symptoms are unchanged. The patient has not experienced similar symptoms in the past. The patient has not recently seen a physician. 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 - Social history:: Smoking status: Patient uses tobacco products, smokes one-half pack cigarettes per day, Patient uses alcohol, occasionally. street drugs, marijuana. - Ebola Screening: : Patient negative for fever greater than or equal to 101.5 degrees Fahrenheit, and additional compatible Ebola Virus Disease symptoms Patient denies exposure to infectious person Patient denies travel to an Ebola-affected area in the 21 days before illness onset. ROS: 06:21 Constitutional: Negative for fever, chills, and weight loss, Cardiovascular: Negative kb for chest pain, palpitations, and edema, Respiratory: Negative for shortness of breath, cough, wheezing, and pleuritic chest pain, Abdomen/GI: Negative for abdominal pain, nausea, vomiting, diarrhea, and constipation, Neuro: Negative for headache, weakness, numbness, tingling, and seizure. 06:21 MS/extremity: Positive for injury or acute deformity, pain, swelling, tenderness, of the lateral side of left foot, instep of left foot and dorsum of left foot. Exam: 06:21 Constitutional: This is a well developed, well nourished patient who is awake, alert, kb and in no acute distress. Head/Face: Normocephalic, atraumatic. Neck: Trachea midline, no thyromegaly or masses palpated, and no cervical lymphadenopathy. Supple, full range of motion without nuchal rigidity, or vertebral point tenderness. No Meningismus. Chest/axilla: Normal chest wall appearance and motion. Nontender with no deformity. No lesions are appreciated. Cardiovascular: Regular rate and rhythm with a normal S1 and S2. No gallops, murmurs, or rubs. Normal PMI, no JVD. No pulse deficits. Respiratory: Lungs have equal breath sounds bilaterally, clear to auscultation and percussion. No rales, rhonchi or wheezes noted. No increased work of breathing, no retractions or nasal flaring. Abdomen/GI: Soft, non-tender, with normal bowel sounds. No distension or tympany. No guarding or rebound. No evidence of tenderness throughout. Neuro: Awake and alert, GCS 15, oriented to person, place, time, and situation. Cranial nerves II-XII grossly intact. Motor strength 5/5 in all extremities. Sensory grossly intact. Cerebellar exam normal. Normal gait. 06:21 Musculoskeletal/extremity: Extremities: grossly normal except: noted in the dorsum of left foot and instep of left foot and lateral side of left foot: ecchymosis, pain, swelling, tenderness, ROM: intact in all extremities, Circulation is intact in all extremities. Sensation intact. Weight bearing: able to fully bear weight. Vital Signs: 06:18 BP 131 / 88; Pulse 96; Resp 18; Temp 99.0(O); Pulse Ox 100% on R/A; Weight 54.43 kg fc (R); Height 5 ft. 2 in. (157.48 cm) (R); Pain 2/10; 08:30 BP 118 / 78; Pulse 87; Resp 18; Temp 98.0; Pulse Ox 99% on R/A; ph 06:18 Body Mass Index 21.95 (54.43 kg, 157.48 cm) MDM: 06:15 Patient medically screened. kb 06:23 Data reviewed: vital signs, nurses notes. Data interpreted: Pulse oximetry: on room air kb is 100 %. Interpretation: normal. 08:25 Counseling: I had a detailed discussion with the patient and/or guardian regarding: the kb historical points, exam findings, and any diagnostic results supporting the discharge/admit diagnosis, radiology results, the need for outpatient follow up, a orthopedic surgeon, to return to the emergency department if symptoms worsen or persist or if there are any questions or concerns that arise at home. 11/15 06:18 Order name: Foot Left 3 View XRAY; Complete Time: 08:25 kb Administered Medications: No medications were administered Disposition: 11/15/18 08:25 Discharged to Home. Impression: Pain in left foot. - Condition is Stable. - Discharge Instructions: Musculoskeletal Pain, Foot Pain. - Medication Reconciliation Form, Thank You Letter, Antibiotic Education, Prescription Opioid Use form. - Follow up: Emergency Department; When: As needed; Reason: Worsening of condition. Follow up: Private Physician; When: 2 - 3 days; Reason: Recheck today's complaints, Continuance of care, Re-evaluation by your physician. Addendum: 11/16/2018 11:17 Co-signature as Attending Physician, Micha Mcknight MD I agree with the assessment and c king plan of care. Signatures: Dispatcher [employer] EDPR Lizette Simon, SCREEN PRINTING MACHINE OPERATOR-C SCREEN PRINTING MACHINE OPERATOR-Ckb Micha Mcknight MD MD cha Chretien, Felicia, RN RN Soledad Olivarez RN RN ph Corrections: (The following items were deleted from the chart) 11/15 08:43 08:25 11/15/2018 08:25 Discharged to Home. Impression: Pain in left foot. Condition is ph Stable. Forms are Medication Reconciliation Form, Thank You Letter, Antibiotic Education, Prescription Opioid Use. Follow up: Emergency Department; When: As needed; Reason: Worsening of condition. Follow up: Private Physician; When: 2 - 3 days; Reason: Recheck today's complaints, Continuance of care, Re-evaluation by your physician. kb
--- NOTE | 2018-11-15 08:27 | ER ---
Nurse's Notes [facility] Name: Aric Banda Age: 23 yrs Sex: Female : 1995 Arrival Date: 11/15/2018 Time: 06:08 Bed 14 Private MD: Diagnosis: Pain in left foot Presentation: 11/15 06:18 Presenting complaint: Patient states: that she was jumping on the trampoline at [facility] [employer] and landed wrong. Now having pain to left foot along with swelling and bruising. Transition of care: patient was not received from another setting of care. Onset of symptoms was November 13, 2018 at 13:00. Risk Assessment: Do you want to hurt yourself or someone else? Patient reports no desire to harm self or others. Initial Sepsis Screen: Does the patient meet any 2 criteria? HR > 90 bpm. Yes Does the patient have a suspected source of infection? No. Patient's initial sepsis screen is negative. Care prior to arrival: None. 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 - Social history:: Smoking status: Patient uses tobacco products, smokes one-half pack cigarettes per day, Patient uses alcohol, occasionally. street drugs, marijuana. - Ebola Screening: : Patient negative for fever greater than or equal to 101.5 degrees Fahrenheit, and additional compatible Ebola Virus Disease symptoms Patient denies exposure to infectious person Patient denies travel to an Ebola-affected area in the 21 days before illness onset. Screenin:20 Abuse screen: Denies threats or abuse. Nutritional screening: No deficits noted. jd3 Tuberculosis screening: No symptoms or risk factors identified. Fall Risk Ambulatory Aid- None/Bed Rest/Nurse Assist (0 pts). Gait- Normal/Bed Rest/Wheelchair (0 pts) Mental Status- Oriented to own ability (0 pts). Total Erwin Fall Scale indicates No Risk (0-24 pts). Assessment: 06:17 General: Appears in no apparent distress. uncomfortable, Behavior is calm, cooperative, jd3 appropriate for age. Pain: Complains of pain in left ankle Quality of pain is described as aching, tender. Neuro: Level of Consciousness is awake, alert, obeys commands, Oriented to person, place, time, situation, Appropriate for age. Cardiovascular: Capillary refill < 3 seconds Patient's skin is warm and dry. Respiratory: Airway is patent Respiratory effort is even, unlabored, Respiratory pattern is regular, symmetrical. GI: No signs and/or symptoms were reported involving the gastrointestinal system. : No signs and/or symptoms were reported regarding the genitourinary system. EENT: No signs and/or symptoms were reported regarding the EENT system. Derm: Skin is intact, Skin is dry, Skin is normal, Skin temperature is warm. Musculoskeletal: Circulation, motion, and sensation intact. Range of motion: limited in left ankle. 07:31 Reassessment: Patient appears in no apparent distress at this time. Patient and/or ph family updated on plan of care and expected duration. Pain level reassessed. Patient is alert, oriented x 3, equal unlabored respirations, skin warm/dry/pink. Pt resting quietly, awaiting Xray results, SO at bedside. 08:40 Reassessment: Patient appears in no apparent distress at this time. Patient and/or ph family updated on plan of care and expected duration. Pain level reassessed. Patient is alert, oriented x 3, equal unlabored respirations, skin warm/dry/pink. Pt d/c home w/ SO. Vital Signs: 06:18 BP 131 / 88; Pulse 96; Resp 18; Temp 99.0(O); Pulse Ox 100% on R/A; Weight 54.43 kg fc (R); Height 5 ft. 2 in. (157.48 cm) (R); Pain 2/10; 08:30 BP 118 / 78; Pulse 87; Resp 18; Temp 98.0; Pulse Ox 99% on R/A; ph 06:18 Body Mass Index 21.95 (54.43 kg, 157.48 cm) ED Course: 06:08 Patient arrived in ED. am2 06:10 Lizette Simon FNP-C is [facility]. kb 06:10 Micha Mcknight MD is Attending Physician. kb 06:17 Cook, Naeem, RN is Primary Nurse. jd3 06:19 Triage completed. fc 06:19 Patient has correct armband on for positive identification. Bed in low position. Call jd3 light in reach. Side rails up X 1. Adult w/ patient. 06:20 Arm band placed on. jd3 06:37 X-ray completed. Portable x-ray completed in exam room. Patient tolerated procedure kw well. 07:05 Foot Left 3 View XRAY In Process Unspecified. EDMS 07:32 No provider procedures requiring assistance completed. Patient did not have IV access ph during this emergency room visit. Administered Medications: No medications were administered Outcome: 08:25 Discharge ordered by . kb 08:43 Patient left the ED. ph 08:43 Discharged to home ambulatory, with significant other. ph 08:43 Condition: good 08:43 Discharge instructions given to patient, Instructed on discharge instructions, follow up and referral plans. Demonstrated understanding of instructions, follow-up care. Signatures: Dispatcher [employer] EDNV Lizette Simon, YANNA-C LEATHER FITTER-Stephanie Alegre, RUBY RN Michelle Crow Patricia, RN RN Gina Hsu Jonathon, RN RN jd3 Corrections: (The following items were deleted from the chart) 06:23 06:15 LMP 11/07/2018 [facility] 06:23 06:15 BP 131 / 88; Pulse 96bpm; Resp 18bpm; Pulse Ox 100% RA; Temp 99.0F Oral; 54.43 kg fc Reported; Height 5 ft. 2 in. Reported; BMI: 21.9; Pain 2/10; fc
== END 2018-11-15 08:43 | disposition home or self-care (01) ==
LOC: ER 06:07
DX: M79.672 Pain in left foot (principal); F17.210 Nicotine dependence, cigarettes, uncomplicated; Z91.010 Allergy to peanuts

== ENCOUNTER 2019-01-06 12:47 | Emergency (ER) | payer SELFPAY ==
--- OUTSIDE RECORDS SUMMARY | 2019-01-06 12:49 | XMS REPORT | Continuity of Care Document ---
:1995 Author Organization Interface Problems Problem Status Onset Classification Date Comments Source Date Reported Discharge 07/19/2016 The Diagnosis: 6 [place] Vaginal bleeding VAGINAL Active The BLEEDING 6 [place] Medications Medication Details Route Status Patient Ordering Order Source Instructions Provider Date Allergies, Adverse Reactions, Alerts Substance Category Reaction Severity Reaction Status Date Comments Source type Reported Food Nuts Assertion Drug Active The allergy [place] Immunizations Immunization Date Given Site Status Last Updated Comments Source Results Order Results Value Reference Date Interpretation Comments Source Name Range URINE UA WBC null 0 - 5 The AND 2015 [place] STOOL URINE UA Sq Epi Occasional Few /LPF The AND /LPF 2015 [place] STOOL URINE Micro? Performed The AND 2015 [place] STOOL *NA* (07/16/16 1:27 AM) URINE UA Mucus Few /LPF None Seen The AND /LPF 2015 [place] STOOL URINE UA RBC 2 /HPF 0 - 2 The AND 2015 [place] STOOL URINE UA Color Yellow Yellow The AND 2015 [place] STOOL *NA* (07/16/16 1:27 AM) URINE UA Turbidity Clear Clear The AND [place] STOOL (07/16/16 1:27 AM) URINE UA Glucose Negative Negative The AND mg/dL mg/dL 2015 [place] STOOL URINE UA Ketones Negative Negative The AND mg/dL mg/dL 2015 [place] STOOL URINE UA Spec Grav 1.019 <=1.030 The AND 2015 [place] STOOL URINE UA pH 6.5 5.0 - 8.0 The AND 2015 [place] STOOL URINE UA Protein Negative Negative The AND mg/dL mg/dL 2015 [place] STOOL URINE UA Leuk Est Negative Negative The AND [place] STOOL (07/16/16 1:27 AM) URINE UA Bili Negative Negative The AND 2016 [place] STOOL *NA* (07/16/16 1:27 AM) URINE UA Blood Trace Negative The AND 2016 [place] STOOL *ABN* (07/16/16 1:27 AM) URINE UA 3.0 mg/dL 0.1 - 1.0 The AND Urobilinogen 2016 [place] STOOL URINE UA Nitrite Negative Negative The AND 2015 [place] STOOL (07/16/16 1:27 AM) URINE U Preg Negative Negative The CHEM 2015 [place] (07/16/16 1:27 AM) Vital Signs Vital Sign Value Date Comments Source Weight 54.545 07/16/2016 [place] Height 157.48 cm 07/16/2016 [place] BMI Calculated 21.99 07/16/2016 [place] Respitory Rate 18 07/16/2016 [place] Temperature Oral (F) 98.2 F 07/16/2016 [place] Heart Rate 85 07/16/2016 [place] Systolic (mm Hg) 141 07/16/2016 [place] Diastolic (mm Hg) 80 07/16/2016 [place] Encounters Location Location Encounter Encounter Reason Attending ADM DC Status Source Details Type Number For Provider Date Date Visit [facility] Emergency [id number] [place] 07/16 07/16 [place] /2015 [facility] Procedures Procedure Code Date Perfomer Comments Source
--- NOTE | 2019-01-06 14:58 | ER ---
Nurse's Notes [facility] Name: Aric Banda Age: 23 yrs Sex: Female : 1995 Arrival Date: 01/06/2019 Time: 12:48 Bed 10 Private MD: Diagnosis: Periapical abscess without sinus Presentation: 01/06 13:27 Presenting complaint: Significant other states: "she had tooth pain a couple days ago aj1 and it has been getting worse and it has started swelling up, she has an abscessed tooth". Transition of care: patient was not received from another setting of care. Onset of symptoms was January 05, 2019. Risk Assessment: Do you want to hurt yourself or someone else? Patient reports no desire to harm self or others. Initial Sepsis Screen: Does the patient meet any 2 criteria? No. Patient's initial sepsis screen is negative. Does the patient have a suspected source of infection? No. Patient's initial sepsis screen is negative. Care prior to arrival: None. 13:27 Method Of Arrival: Ambulatory aj 13:27 Acuity: [place]ER[place] 4 aj1 Triage Assessment: 13:28 General: Appears in no apparent distress. uncomfortable, Behavior is calm, cooperative, aj1 appropriate for age. Pain: Complains of pain in left jaw Pain radiates to neck Pain currently is 7 out of 10 on a pain scale. EENT: Reports pain in left jaw. Neuro: Level of Consciousness is awake, alert, obeys commands. Cardiovascular: Patient's skin is warm and dry. Respiratory: Airway is patent Respiratory effort is even, unlabored, Respiratory pattern is regular, symmetrical. 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 - Social history:: Smoking status: Patient uses tobacco products, smokes one-half pack cigarettes per day. - Ebola Screening: : Patient denies travel to an Ebola-affected area in the 21 days before illness onset. Screenin:30 Abuse screen: Denies threats or abuse. Denies injuries from another. Nutritional hb screening: No deficits noted. Tuberculosis screening: No symptoms or risk factors identified. Fall Risk None identified. Assessment: 14:30 General: Appears in no apparent distress. uncomfortable, Behavior is calm, cooperative. hb Pain: Pain currently is 7 out of 10 on a pain scale. Neuro: Level of Consciousness is awake, alert, obeys commands, Oriented to person, place, time, situation. Cardiovascular: Capillary refill < 3 seconds Patient's skin is warm and dry. Respiratory: Airway is patent Respiratory effort is even, unlabored. GI: No signs and/or symptoms were reported involving the gastrointestinal system. : No signs and/or symptoms were reported regarding the genitourinary system. EENT: Reports left sided upper jaw and left upper molar pain. Derm: Skin is intact, is healthy with good turgor, Skin is pink, warm \\T\\ dry. Musculoskeletal: No signs and/or symptoms reported regarding the musculoskeletal system. Vital Signs: 13:28 Pulse 79; Resp 18; Temp 97.4; Pulse Ox 100% on R/A; Weight 50.8 kg (R); Height 5 ft. 3 aj1 in. (160.02 cm) (R); Pain 7/10; 13:28 BP 133 / 89; aj1 13:28 Body Mass Index 19.84 (50.80 kg, 160.02 cm) aj1 ED Course: 12:48 Patient arrived in ED. as 13:28 Triage completed. aj1 13:30 Arm band placed on Patient placed in waiting room, Patient notified of wait time. aj1 14:21 Timothy Bland NP is PHCP. pm1 14:21 Yannick Abreu MD is Attending Physician. pm1 14:30 Patient has correct armband on for positive identification. Call light in reach. hb 15:08 Vikki Tavares, RN is Primary Nurse. hb 15:10 No provider procedures requiring assistance completed. Patient did not have IV access hb during this emergency room visit. Administered Medications: 15:08 Drug: Dinosaur 10 mg-325 mg 1 tabs Route: PO; hb 15:08 Follow up: Response: Medication administered at discharge. hb Outcome: 14:54 Discharge ordered by . pm1 15:10 Discharged to home ambulatory, with significant other. hb 15:10 Condition: stable 15:10 Discharge instructions given to patient, Instructed on discharge instructions, follow up and referral plans. medication usage, Demonstrated understanding of instructions, follow-up care, medications, Prescriptions given X 2. 15:11 Patient left the ED. hb Signatures: Marie England, RN RN aj1 Violetta Hancock Patrick, WOODWORKING SHOP LABORER WOODWORKING SHOP LABORER pm1 Vikki Tavares RN RN hb
--- NOTE | 2019-01-06 15:00 | EDPHYS ---
Physician Documentation [facility] Name: Aric Banda Age: 23 yrs Sex: Female : 1995 Arrival Date: 01/06/2019 Time: 12:48 Bed 10 Private MD: ED Physician Yannick Abreu HPI: 01/06 14:48 This 23 yrs old Female presents to ER via Ambulatory with complaints of pm1 Toothache. 14:48 The patient presents with pain. The problem is located in the lower left second molar. pm1 14:48 Onset: The symptoms/episode began/occurred 3 day(s) ago. Duration: The symptoms are pm1 continuous. Modifying factors: The symptoms are alleviated by nothing, the symptoms are aggravated by nothing. Associated signs and symptoms: Pertinent negatives: dysphagia, fever, inability to eat. Severity of symptoms: in the emergency department the symptoms are actually worse. The patient has experienced similar episodes in the past, multiple times. The patient has not recently seen a physician. 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 - Social history:: Smoking status: Patient uses tobacco products, smokes one-half pack cigarettes per day. - Ebola Screening: : Patient denies travel to an Ebola-affected area in the 21 days before illness onset. ROS: 14:48 Constitutional: Negative for fever, chills, and weight loss, Eyes: Negative for injury, pm1 pain, redness, and discharge, Neck: Negative for injury, pain, and swelling, Cardiovascular: Negative for chest pain, palpitations, and edema. 14:48 Respiratory: Negative for shortness of breath, cough, wheezing, and pleuritic chest pain, Abdomen/GI: Negative for abdominal pain, nausea, vomiting, diarrhea, and constipation, Back: Negative for injury and pain, MS/Extremity: Negative for injury and deformity, Skin: Negative for injury, rash, and discoloration, Neuro: Negative for headache, weakness, numbness, tingling, and seizure. 14:48 ENT: Positive for dental pain, Negative for drainage from ear(s), ear pain, rhinorrhea, sore throat, difficulty swallowing. Exam: 14:48 Constitutional: This is a well developed, well nourished patient who is awake, alert, pm1 and in no acute distress. Head/Face: Normocephalic, atraumatic. Eyes: Pupils equal round and reactive to light, extra-ocular motions intact. Lids and lashes normal. Conjunctiva and sclera are non-icteric and not injected. Cornea within normal limits. Periorbital areas with no swelling, redness, or edema. 14:48 Neck: Trachea midline, no thyromegaly or masses palpated, and no cervical lymphadenopathy. Supple, full range of motion without nuchal rigidity, or vertebral point tenderness. No Meningismus. Chest/axilla: Normal chest wall appearance and motion. Nontender with no deformity. No lesions are appreciated. Cardiovascular: Regular rate and rhythm with a normal S1 and S2. No gallops, murmurs, or rubs. Normal PMI, no JVD. No pulse deficits. Respiratory: Lungs have equal breath sounds bilaterally, clear to auscultation and percussion. No rales, rhonchi or wheezes noted. No increased work of breathing, no retractions or nasal flaring. Back: No spinal tenderness. No costovertebral tenderness. Full range of motion. Skin: Warm, dry with normal turgor. Normal color with no rashes, no lesions, and no evidence of cellulitis. MS/ Extremity: Pulses equal, no cyanosis. Neurovascular intact. Full, normal range of motion. 14:48 ENT: External ear(s): are unremarkable, Ear canal(s): are normal, TM's: are normal, Nose: is normal, Mouth: is normal, Dental exam: dental caries, diffusely, gum swelling, that is mild, specifically in the lower left second molar (#18). 14:48 Neuro: Orientation: is normal, Motor: is normal, moves all fours. Vital Signs: 13:28 Pulse 79; Resp 18; Temp 97.4; Pulse Ox 100% on R/A; Weight 50.8 kg (R); Height 5 ft. 3 aj1 in. (160.02 cm) (R); Pain 7/10; 13:28 BP 133 / 89; aj1 13:28 Body Mass Index 19.84 (50.80 kg, 160.02 cm) aj1 MDM: 14:47 Patient medically screened. pm1 14:50 Data reviewed: vital signs. Data interpreted: Pulse oximetry: on room air is 100 %. pm1 Interpretation: normal. Counseling: I had a detailed discussion with the patient and/or guardian regarding: the historical points, exam findings, and any diagnostic results supporting the discharge/admit diagnosis, the need for outpatient follow up, for definitive care, a dentist, to return to the emergency department if symptoms worsen or persist or if there are any questions or concerns that arise at home. Administered Medications: 15:08 Drug: Kite 10 mg-325 mg 1 tabs Route: PO; hb 15:08 Follow up: Response: Medication administered at discharge. hb Disposition: 16:16 Co-signature as Attending Physician, Yannick Abreu MD I agree with the assessment and kdr plan of care. Disposition: 01/06/19 14:54 Discharged to Home. Impression: Periapical abscess without sinus. - Condition is Stable. - Discharge Instructions: Dental Abscess, Dental Pain. - Prescriptions for Augmentin 875- 125 mg Oral Tablet - take 1 tablet by ORAL route every 12 hours for 10 days; 20 tablet. Tylenol- Codeine #3 300-30 mg Oral Tablet - take 2 tablets by ORAL route every 6 hours As needed; 20 tablet. - Work release form, Family Work Release, Medication Reconciliation Form, Thank You Letter, Antibiotic Education, Prescription Opioid Use form. - Follow up: Emergency Department; When: As needed; Reason: Worsening of condition. Follow up: Private Physician; When: 2 - 3 days; Reason: Recheck today's complaints, Continuance of care, Re-evaluation by your physician. - Problem is new. - Symptoms have improved. Signatures: Marie England RN RN aj1 Yannick Abreu MD MD kdr Marinas, Patrick, NP MINIATURE TRAIN DRIVER pm1 Vikki Tavares RN RN hb Corrections: (The following items were deleted from the chart) 15:11 14:54 01/06/2019 14:54 Discharged to Home. Impression: Periapical abscess without hb sinus. Condition is Stable. Forms are Medication Reconciliation Form, Thank You Letter, Antibiotic Education, Prescription Opioid Use. Follow up: Emergency Department; When: As needed; Reason: Worsening of condition. Follow up: Private Physician; When: 2 - 3 days; Reason: Recheck today's complaints, Continuance of care, Re-evaluation by your physician. Problem is new. Symptoms have improved. pm1
[2019-01-06] MEDS ORDERED: HYDROCODONE/APAP 10/325 TAB ONE (15:20)
== END 2019-01-06 15:11 | disposition home or self-care (01) ==
LOC: ER 12:47
DX: K04.7 Periapical abscess without sinus (principal); F17.210 Nicotine dependence, cigarettes, uncomplicated; Z91.010 Allergy to peanuts
CPT/HCPCS: 99283

== ENCOUNTER 2020-08-30 14:05 | Emergency (ER) | payer SELFPAY ==
--- NOTE | 2020-08-30 15:08 | ER ---
Nurse's Notes [facility] Name: Aric Banda Age: 25 yrs Sex: Female : 1995 Arrival Date: 08/30/2020 Time: 14:06 Bed Waiting Private MD: Diagnosis: Acute pharyngitis;Acute laryngitis Presentation: 08/30 14:32 Chief complaint: Patient states: sore throat and can barely talk X 2 days. Coronavirus iw screen: sore throat, Client presents with at least one sign or symptom that may indicate coronavirus-19. Standard/surgical mask placed on the client. Provider contacted for isolation considerations. Ebola Screen: Patient negative for fever greater than or equal to 101.5 degrees Fahrenheit, and additional compatible Ebola Virus Disease symptoms Patient denies exposure to infectious person. Patient denies travel to an Ebola-affected area in the 21 days before illness onset. No symptoms or risks identified at this time. Initial Sepsis Screen: Does the patient meet any 2 criteria? No. Patient's initial sepsis screen is negative. Does the patient have a suspected source of infection? No. Patient's initial sepsis screen is negative. Risk Assessment: Do you want to hurt yourself or someone else? Patient reports no desire to harm self or others. Onset of symptoms was August 28, 2020. 14:32 Method Of Arrival: Ambulatory iw 14:32 Acuity: SIERRA 4 iw Triage Assessment: 14:35 General: Appears in no apparent distress. Behavior is calm, cooperative. 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 - Social history:: Smoking status: Patient reports the use of cigarette tobacco products, smokes one-half pack cigarettes per day. Screenin:00 Abuse screen: Denies threats or abuse. Denies injuries from another. Nutritional iw screening: No deficits noted. Tuberculosis screening: No symptoms or risk factors identified. Fall Risk None identified. Assessment: 14:50 General: Appears in no apparent distress. Behavior is calm, cooperative. Pain: iw Complains of pain in throat. Neuro: Level of Consciousness is awake, alert, obeys commands, Oriented to person, place, time, situation, Moves all extremities. Full function. Cardiovascular: Patient's skin is warm and dry. Respiratory: Airway is patent Respiratory effort is even, unlabored, Breath sounds are clear bilaterally. EENT: Throat is reddened bilaterally. Derm: Skin is intact, is healthy with good turgor. Musculoskeletal: Range of motion: intact in all extremities. Vital Signs: 14:33 BP 121 / 87; Pulse 85; Resp 16; Temp 97; Pulse Ox 98% on R/A; Weight 72.57 kg; iw ED Course: 14:06 Patient arrived in ED. ag5 14:12 Lizette Simon FNP-C is [facility]. kb 14:12 Yannick Abreu MD is Attending Physician. kb 14:33 Triage completed. iw 14:40 Arm band placed on. iw 14:44 Kaylynn Mosher, RN is Primary Nurse. iw 14:44 Strep Sent. iw 15:13 No provider procedures requiring assistance completed. Patient did not have IV access iw during this emergency room visit. Administered Medications: No medications were administered Outcome: 15:07 Discharge ordered by MD. kb 15:13 Discharged to home ambulatory, with family. iw 15:13 Condition: good 15:13 Discharge instructions given to patient, family, Instructed on discharge instructions, follow up and referral plans. Demonstrated understanding of instructions, follow-up care. 15:14 Patient left the ED. iw Signatures: Lizette Simon FNP-C FNP-Kaylynn Crystal RN RN iw Guicho Chavez ag5 Corrections: (The following items were deleted from the chart) 14:35 14:33 Pulse 85bpm; Resp 16bpm; Pulse Ox 98% RA; Temp 97F; iw iw
--- NOTE | 2020-08-30 15:08 | EDPHYS ---
Physician Documentation [facility] Name: Aric Banda Age: 25 yrs Sex: Female : 1995 Arrival Date: 08/30/2020 Time: 14:06 Bed Waiting Private MD: ED Physician Yannick Abreu HPI: 08/30 15:05 This 25 yrs old Female presents to ER via Ambulatory with complaints of Sore kb Throat. 15:05 The patient presents with sore throat. The patient describes throat pain as constant. kb Onset: The symptoms/episode began/occurred 2 day(s) ago. Severity of symptoms: At their worst the symptoms were mild, moderate, in the emergency department the symptoms are unchanged. Modifying factors: The symptoms are alleviated by nothing, the symptoms are aggravated by swallowing, Patient's oral intake status: good Denies contact with similarly ill indivduals. Associated signs and symptoms: Pertinent positives: Sore throat loss of voice. The patient has not experienced similar symptoms in the past. The patient has not recently seen a physician. 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 - Social history:: Smoking status: Patient reports the use of cigarette tobacco products, smokes one-half pack cigarettes per day. ROS: 15:03 Constitutional: Negative for fever, chills, and weight loss, Cardiovascular: Negative kb for chest pain, palpitations, and edema, Respiratory: Negative for shortness of breath, cough, wheezing, and pleuritic chest pain, Abdomen/GI: Negative for abdominal pain, nausea, vomiting, diarrhea, and constipation, MS/Extremity: Negative for injury and deformity, Skin: Negative for injury, rash, and discoloration, Neuro: Negative for headache, weakness, numbness, tingling, and seizure. 15:03 ENT: Positive for hoarseness, sore throat. Exam: 15:03 Constitutional: This is a well developed, well nourished patient who is awake, alert, kb and in no acute distress. Head/Face: Normocephalic, atraumatic. Chest/axilla: Normal chest wall appearance and motion. Nontender with no deformity. No lesions are appreciated. Cardiovascular: Regular rate and rhythm with a normal S1 and S2. No gallops, murmurs, or rubs. Normal PMI, no JVD. No pulse deficits. Respiratory: Lungs have equal breath sounds bilaterally, clear to auscultation and percussion. No rales, rhonchi or wheezes noted. No increased work of breathing, no retractions or nasal flaring. Abdomen/GI: Soft, non-tender, with normal bowel sounds. No distension or tympany. No guarding or rebound. No evidence of tenderness throughout. Skin: Warm, dry with normal turgor. Normal color with no rashes, no lesions, and no evidence of cellulitis. MS/ Extremity: Pulses equal, no cyanosis. Neurovascular intact. Full, normal range of motion. Neuro: Awake and alert, GCS 15, oriented to person, place, time, and situation. Cranial nerves II-XII grossly intact. Motor strength 5/5 in all extremities. Sensory grossly intact. Cerebellar exam normal. Normal gait. 15:03 ENT: Posterior pharynx: Airway: normal, no evidence of obstruction, Tonsils: with erythema, with exudate, Uvula: normal, midline, swelling, is not appreciated, erythema, that is mild, exudate, that is mild. Vital Signs: 14:33 BP 121 / 87; Pulse 85; Resp 16; Temp 97; Pulse Ox 98% on R/A; Weight 72.57 kg; iw MDM: 14:34 Patient medically screened. kb 15:02 Data reviewed: vital signs, nurses notes. Data interpreted: Pulse oximetry: on room air kb is 98 %. Interpretation: normal. Counseling: I had a detailed discussion with the patient and/or guardian regarding: the historical points, exam findings, and any diagnostic results supporting the discharge/admit diagnosis, lab results, the need for outpatient follow up, a family practitioner, to return to the emergency department if symptoms worsen or persist or if there are any questions or concerns that arise at home. 08/30 14:35 Order name: Strep; Complete Time: 15:02 kb 08/30 15:01 Order name: Throat Culture EDMS Administered Medications: No medications were administered Disposition: 16:57 Co-signature as Attending Physician, Yannick Abreu MD I agree with the assessment and kdr plan of care. Disposition: 08/30/20 15:07 Discharged to Home. Impression: Acute laryngitis, Acute pharyngitis. - Condition is Stable. - Discharge Instructions: Pharyngitis, [id number], Laryngitis, [id number]. - Medication Reconciliation Form, Thank You Letter, Antibiotic Education, Prescription Opioid Use, Work release form form. - Follow up: Emergency Department; When: As needed; Reason: Worsening of condition. Follow up: Private Physician; When: 2 - 3 days; Reason: Recheck today's complaints, Continuance of care, Re-evaluation by your physician. Signatures: Dispatcher [employer] EDMS Lizette Simon, GLOVE FACTORY SEWER-C GLOVE FACTORY SEWER-Yannick Moore MD MD kdr Kaylynn Mosher RN RN iw Corrections: (The following items were deleted from the chart) 15:07 15:03 ENT: Positive for sore throat, kb kb 15:08 15:07 08/30/2020 15:07 Discharged to Home. Impression: Acute pharyngitis. Condition is kb Stable. Forms are Medication Reconciliation Form, Thank You Letter, Antibiotic Education, Prescription Opioid Use. Follow up: Emergency Department; When: As needed; Reason: Worsening of condition. Follow up: Private Physician; When: 2 - 3 days; Reason: Recheck today's complaints, Continuance of care, Re-evaluation by your physician. kb 15:14 15:08 08/30/2020 15:07 Discharged to Home. Impression: Acute laryngitisAcute iw pharyngitis. Condition is Stable. Discharge Instructions: Pharyngitis, [id number], Laryngitis, Kgqd-[id number]. Forms are Medication Reconciliation Form, Thank You Letter, Antibiotic Education, Prescription Opioid Use. Follow up: Emergency Department; When: As needed; Reason: Worsening of condition. Follow up: Private Physician; When: 2 - 3 days; Reason: Recheck today's complaints, Continuance of care, Re-evaluation by your physician. kb
[2020-08-30 15:28] VITALS: BP 121/87; TEMP 97; O2SAT 98
== END 2020-08-30 15:14 | disposition home or self-care (01) ==
LOC: ER 14:05
DX: J02.9 Acute pharyngitis, unspecified (principal); J04.0 Acute laryngitis; Z91.010 Allergy to peanuts; F17.210 Nicotine dependence, cigarettes, uncomplicated
CPT/HCPCS: 87070; 87081; 99283

== ENCOUNTER 2021-12-24 22:05 | Emergency (ER) | payer SELFPAY ==
--- OUTSIDE RECORDS SUMMARY | 2021-12-24 22:08 | XMS REPORT | Continuity of Care Document ---
:1995 Author Organization [facility] t Address [facility] 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 12-05 LSIL ity of Papanicola Papanicola 00:00: 11/2014, [place] smear ou smear 00 repeat Medica l of cervix of cervix pap Bran ch 11/2015 Screening Screening Disease Active Overview: Univers for STD for STD 11-25 ICD10 ity of (sexually (sexually 00:00: Diagnosis [place] transmitte transmitte 00 Term Me dical d disease) d disease) Side Guider Branch Utility Tobacco Tobacco Disease Active Univers use use 11-25 ity of disorder disorder 00:00: [address] Branch No known No known Disease Unive rs active active ity of problems problems [facility] Allergies, Adverse Reactions, Alerts Allergy Allergy Status Severity Reaction(s) Onset Inactive Treating Comm ents Source Name Type Date Date Clinician Tree Propensi Active Anaphylaxis Uni vers Nuts ty to 11-24 ity of adverse 00:00: [place] reaction 00 Medical Branch TREE Food Active Anaphylaxis Unive rs NUTS 11-24 ity of 00:00: [place] [address] Medical Branch NO KNOWN Drug Active Univers ALLERGIE Class ity of S [facility] Social History Social Habit Start Date Stop Date Quantity Comments Source History of Cigarette Smoker Universi ty of tobacco use [facility] Tobacco Comment 1pkg every 1/2 Unive rsity of days/ pt states [place] Med ical she is trying to Branch quit Sex Assigned At [facility] y of [facility] Exposure to Not sure University of SARS-CoV-2 [place] [facility] (event) [place] Tobacco use and 2020-06-11 2020-06-11 Never used Universit y of exposure 00:00:00 00:00:00 [facility] Alcohol intake 2020-06-11 2020-06-11 Current University 00:00:00 00:00:00 non-drinker of [facility] alcohol (finding) [place] Alcohol Comment 2014-02-10 2014-02-10 on occasion Universi ty of 00:00:00 00:00:00 [facility] Smoking Status Start Date Stop Date Source Current every day smoker 2020-06-11 00:00:00 Uni versity [facility] Medications Ordered Filled Start Stop Current Ordering Indication Dosage Frequency Signature Comments Components Source Medication Medication Date Date Medication? Clinician (SIG) Name Name permethrin 2015-07 Yes Apply head U nivers (ELIMITE) 5 1-30 to toe, ity o f % cream 00:00: leave on [place] 00 for 12 Medical hours, Branch then rinse off in shower. Reapply in 2 weeks if needed. No known No [facility] Ordered Filled Immunization Date Status Comments Sourc e Immunization Name Name TDAP 2014-08-29 Completed [facility] 00:00:00 [facility] Vital Signs Vital Name Observation Time Observation Value Comments Source Systolic blood 2020-06-11 20:40:00 120 mm[Hg] Univer sity of pressure [facility] Diastolic blood 2020-06-11 20:40:00 78 mm[Hg] Unive rsity of pressure [facility] Heart rate 2020-06-11 20:40:00 98 /min Universi ty [facility] Body temperature 2020-06-11 20:40:00 37 Rhonda [facility] 2020-06-11 20:40:00 16 /min [facility] Body height 2020-06-11 20:40:00 157.5 cm Universi ty [facility] Body weight 2020-06-11 20:40:00 73.086 kg Universi ty [facility] BMI 2020-06-11 20:40:00 29.47 kg/m2 Universi ty [facility] Procedures Procedure Date / Time Performed Performing Clinician Jennifer pham POCT TEST 2020-06-11 20:42:[address] 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 ity [facility] [id number] Eusebio as MATERNAL [id number] Med ical & CHILD [address] [place] [address] 2020-06-11 2020-06-11 Outpatient R MIREYA, [facility] [id number] Univers 14:45:00 14:45:00 AUDREY esparza f [facility] 2020-06-11 2020-06-11 Outpatient R SURINDERASHUTOSH, [facility] [id number] Univers 14:30:00 14:30:00 AUDREY moreno o f [facility] 2020-06-11 2020-06-11 Outpatient [facility] [id number] Univers 14:30:00 14:30:00 [id number] ity of [facility] 2020-06-11 2020-06-11 Orders Doctor MEÑO [id number] Univers 00:00:00 00:00:00 Only UnassignedAMY [id number] [facility] [id number] Eusebio as [phone] [address] Results Test Description Test Time Test Comments Results Result Comments Source POCT TEST 2020-06-11 20:42:00 Test Item Value Reference Range Interpretation Comme nts POCT PREG (test code = 1605) Negative On board controls acceptable with C Line (test code = 3574) Yes POCT PREG LOT # (test code = 3575) POCT PREG TEST DATE (test code = 3576) [facility]
[2021-12-25 00:13] LABS: Urine Blood Negative (Negative); Urine Glucose Negative (Negative); Urine Protein Negative (Negative); Urine Specific Gravity 1.025 (1.005-1.030)
[2021-12-25 00:14] LABS: Hematocrit 47.3 % (36.0-45.0); Lymphocytes % 38.4 % (15.3-44.8); MPV 7.8 fL (7.6-11.3); RBC Red Blood Cell Count 5.58 M/uL (3.86-4.86)
[2021-12-25 00:34] LABS: Urine Specific Gravity/Preg 1.025 (1.005-1.030)
[2021-12-25 00:35] LABS: Albumin 3.9 g/dL (3.4-5.0); Bilirubin Total 0.5 mg/dL (0.2-1.0); Potassium 3.3 mmol/L (3.5-5.1); Protein, Total 7.9 g/dL (6.4-8.2)
[2021-12-25] MEDS ORDERED: ONDANSETRON 4 MG/2 ML VIAL ONE (00:42)
[2021-12-25] MEDS ORDERED: MORPHINE 4 MG/ML SYR ONE (00:42)
[2021-12-25] MEDS ORDERED: NA CHLORIDE 0.9% 1,000 ML ONE (01:20)
--- NOTE | 2021-12-25 03:25 | ER ---
Nurse's Notes [facility] Name: Aric Banda Age: 26 yrs Sex: Female : 1995 Arrival Date: 12/24/2021 Time: 22:08 Bed 17 Private MD: Diagnosis: Flank Pain Presentation: 12/24 22:12 Chief complaint: Patient states: I have bad left middle back pain and in my left ribs. jb4 It occasionally shoots up my spine. 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 Coronavirus screen: At this time, the client does not indicate any symptoms associated with coronavirus-19. Ebola Screen: No symptoms or risks identified at this time. Initial Sepsis Screen: Does the patient meet any 2 criteria? No. Patient's initial sepsis screen is negative. Does the patient have a suspected source of infection? No. Patient's initial sepsis screen is negative. Risk Assessment: Do you want to hurt yourself or someone else? Patient reports no desire to harm self or others. Onset of symptoms was December 24, 2021. Transition of care: patient was not received from another setting of care. 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 - Social history:: Smoking status: Patient reports the use of cigarette tobacco products, smokes one-half pack cigarettes per day. Screenin/08 00:16 Abuse screen: Denies threats or abuse. Denies injuries from another. Nutritional lg3 screening: No deficits noted. Tuberculosis screening: No symptoms or risk factors identified. Fall Risk None identified. Assessment: 00:16 General: Appears in no apparent distress. uncomfortable, Behavior is calm, cooperative. lg3 Pain: Complains of pain in left flank. Neuro: No deficits noted. [place] Agitation-Sedation Scale (RASS): 0 - Alert and Calm Level of Consciousness is awake, alert, obeys commands, Oriented to person, place, time, situation. Cardiovascular: No deficits noted. Denies chest pain, shortness of breath, Capillary refill < 3 seconds Clubbing of nail beds is absent JVD is absent Patient's skin is warm and dry. Respiratory: No deficits noted. Airway is patent Trachea midline Respiratory effort is even, unlabored, Respiratory pattern is regular, symmetrical, Breath sounds are clear bilaterally. GI: No deficits noted. No signs and/or symptoms were reported involving the gastrointestinal system. Abdomen is flat, non-distended. : No deficits noted. No signs and/or symptoms were reported regarding the genitourinary system. EENT: No deficits noted. No signs and/or symptoms were reported regarding the EENT system. Derm: No deficits noted. No signs and/or symptoms reported regarding the dermatologic system. Skin is intact, is healthy with good turgor, Skin is dry, Skin temperature is warm. Musculoskeletal: No deficits noted. No signs and/or symptoms reported regarding the musculoskeletal system. Circulation, motion, and sensation intact. Range of motion: intact in all extremities. 01:27 Reassessment: Patient appears in no apparent distress at this time. No changes from lg3 previously documented assessment. Patient and/or family updated on plan of care and expected duration. Pain level reassessed. Patient is alert, oriented x 3, equal unlabored respirations, skin warm/dry/pink. 02:33 Reassessment: Patient appears in no apparent distress at this time. Patient is alert, lg3 oriented x 3, equal unlabored respirations, skin warm/dry/pink. pt quietly resting at this time. 03:15 Reassessment: Dr. Foy at bedside to discuss results with patient and significant lp1 other. 03:30 Reassessment: Patient is alert, oriented x 3, equal unlabored respirations, skin lp1 warm/dry/pink. Patient states feeling better. Vital Signs: 12/24 22:12 BP 104 / 92; Pulse 84; Resp 16; Temp 97.4(TE); Pulse Ox 96% ; Weight 58.97 kg (R); jb4 Height 5 ft. 3 in. (160.02 cm) (R); Pain 6/10; 12/25 01:28 BP 129 / 79; Pulse 64; Resp 17; Pulse Ox 100% on R/A; lg3 02:33 BP 132 / 84; Pulse 62; Resp 16; Pulse Ox 100% on R/A; lg3 12/24 22:12 Body Mass Index 23.03 (58.97 kg, 160.02 cm) jb4 ED Course: 12/24 22:08 Patient arrived in ED. ja2 22:14 Triage completed. jb4 22:14 Arm band placed on right wrist. jb4 23:41 Peggy Frausto, RN is Primary Nurse. lg3 12/25 00:03 Zaid Foy MD is Attending Physician. mh7 00:05 CBC with Diff Sent. lg3 00:05 CMP Sent. lg3 00:05 Lipase Sent. lg3 00:05 Inserted saline lock: 20 gauge in left antecubital area, using aseptic technique. Blood lg3 collected. 00:16 Patient has correct armband on for positive identification. Bed in low position. Call lg3 light in reach. Side rails up X 1. Client placed on continuous cardiac and pulse oximetry monitoring. NIBP monitoring applied. Door closed. Noise minimized. Warm blanket given. Family accompanied patient. 01:26 CT Stone Protocol In Process Unspecified. EDMS 03:30 No provider procedures requiring assistance completed. IV discontinued, No lp1 redness/swelling at site. Pressure dressing applied. Administered Medications: 00:37 Drug: morphine 4 mg Route: IVP; Infused Over: 4 mins; Site: left antecubital; lg3 00:37 Follow up: Response: No adverse reaction lg3 00:37 Drug: Zofran (Ondansetron) 4 mg Route: IVP; Site: left antecubital; lg3 00:37 Follow up: Response: No adverse reaction lg3 01:27 Drug: NS 0.9% 1000 ml Route: IV; Rate: 1000 ml; Site: left antecubital; lg3 03:00 Follow up: IV Status: Completed infusion; IV Intake: 1000ml lp1 Medication: 00:16 VIS not applicable for this client. lg3 Intake: 03:00 IV: 1000ml; Total: 1000ml. lp1 Outcome: 03:25 Discharge ordered by . 7 03:30 Discharged to home ambulatory, with significant other. lp1 03:30 Condition: good 03:30 Discharge instructions given to patient, Instructed on discharge instructions, follow up and referral plans. medication usage, Demonstrated understanding of instructions, follow-up care, medications, Prescriptions given X 1. 03:36 Patient left the ED. lg3 Signatures: Dispatcher [employer] EDMS Jessica Rodrigues RN RN lp1 Valdemar Sibley RN RN jb4 Peggy Frausto RN RN lg3 Zaid Foy MD MD 7 Haley Rodríguez Corrections: (The following items were deleted from the chart) 12/24 22:14 22:12 Pulse 84bpm; Resp 16bpm; Pulse Ox 96%; Temp 97.4F Temporal; 58.97 kg Reported; jb4 Height 5 ft. 3 in. Reported; BMI: 23.0; Pain 6/10; jb4 12/25 03:41 03:39 Reassessment: Patient is alert, oriented x 3, equal unlabored respirations, skin lp1 warm/dry/pink. Patient states feeling better. lp1
--- NOTE | 2021-12-25 03:25 | EDPHYS ---
Physician Documentation [facility] Name: Aric Banda Age: 26 yrs Sex: Female : 1995 Arrival Date: 12/24/2021 Time: 22:08 Bed 17 Private MD: ED Physician Zaid Foy HPI: 12/25 00:20 This 26 yrs old Female presents to ER via Ambulatory with complaints of Back Pain, mh7 Flank Pain. 00:20 The patient complains of pain in the left flank. mh7 00:20 The pain radiates to the abdomen. Onset: The symptoms/episode began/occurred just prior mh7 to arrival. Modifying factors: The symptoms are alleviated by nothing. the symptoms are aggravated by movement, palpation/percussion. Associated signs and symptoms: Pertinent negatives: diarrhea, dizziness, dysuria, fever, urinary frequency, headache, hematuria, nausea, pain radiating to the lower extremities, vomiting. Severity of pain: At its worst the pain was moderate just prior to arrival, in the emergency department the pain has improved moderately. 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 - Social history:: Smoking status: Patient reports the use of cigarette tobacco products, smokes one-half pack cigarettes per day. ROS: 12/25 00:20 Constitutional: Negative for fever, chills, and weight loss, Eyes: Negative for injury, mh7 pain, redness, and discharge, ENT: Negative for injury, pain, and discharge, Neck: Negative for injury, pain, and swelling, Cardiovascular: Negative for chest pain, palpitations, and edema, Respiratory: Negative for shortness of breath, cough, wheezing, and pleuritic chest pain, : Negative for injury, bleeding, discharge, and swelling, MS/Extremity: Negative for injury and deformity, Skin: Negative for injury, rash, and discoloration, Neuro: Negative for headache, weakness, numbness, tingling, and seizure, Psych: Negative for depression, anxiety, suicide ideation, homicidal ideation, and hallucinations, Allergy/Immunology: Negative for hives, rash, and allergies, Endocrine: Negative for neck swelling, polydipsia, polyuria, polyphagia, and marked weight changes, Hematologic/Lymphatic: Negative for swollen nodes, abnormal bleeding, and unusual bruising. Exam: 00:20 Head/Face: Normocephalic, atraumatic. Eyes: Pupils equal round and reactive to light, mh7 extra-ocular motions intact. Lids and lashes normal. Conjunctiva and sclera are non-icteric and not injected. Cornea within normal limits. Periorbital areas with no swelling, redness, or edema. Neck: Trachea midline, no thyromegaly or masses palpated, and no cervical lymphadenopathy. Supple, full range of motion without nuchal rigidity, or vertebral point tenderness. No Meningismus. Chest/axilla: Normal chest wall appearance and motion. Nontender with no deformity. No lesions are appreciated. Cardiovascular: Regular rate and rhythm with a normal S1 and S2. No gallops, murmurs, or rubs. Normal PMI, no JVD. No pulse deficits. Respiratory: Lungs have equal breath sounds bilaterally, clear to auscultation and percussion. No rales, rhonchi or wheezes noted. No increased work of breathing, no retractions or nasal flaring. Abdomen/GI: Soft, non-tender, with normal bowel sounds. No distension or tympany. No guarding or rebound. No evidence of tenderness throughout. 00:20 Skin: Warm, dry with normal turgor. Normal color with no rashes, no lesions, and no evidence of cellulitis. MS/ Extremity: Pulses equal, no cyanosis. Neurovascular intact. Full, normal range of motion. Neuro: Awake and alert, GCS 15, oriented to person, place, time, and situation. Cranial nerves II-XII grossly intact. Motor strength 5/5 in all extremities. Sensory grossly intact. Cerebellar exam normal. Normal gait. 00:20 Constitutional: The patient appears in no acute distress, alert, awake, uncomfortable. 00:20 Back: normal spinal alignment noted, CVA tenderness, that is moderate, is noted on the left. Vital Signs: 12/24 22:12 BP 104 / 92; Pulse 84; Resp 16; Temp 97.4(TE); Pulse Ox 96% ; Weight 58.97 kg (R); jb4 Height 5 ft. 3 in. (160.02 cm) (R); Pain 6/10; 12/25 01:28 BP 129 / 79; Pulse 64; Resp 17; Pulse Ox 100% on R/A; lg3 02:33 BP 132 / 84; Pulse 62; Resp 16; Pulse Ox 100% on R/A; lg3 12/24 22:12 Body Mass Index 23.03 (58.97 kg, 160.02 cm) jb4 MDM: 03:22 Differential diagnosis: nephrolithiasis, pyelonephritis, UTI. Data reviewed: vital [facility] signs, nurses notes, lab test result(s), CBC, electrolytes, urinalysis, UPT: negative radiologic studies, CT scan. Data interpreted: Pulse oximetry: on room air is 100 %. Interpretation: normal. Counseling: I had a detailed discussion with the patient and/or guardian regarding: the historical points, exam findings, and any diagnostic results supporting the discharge/admit diagnosis, lab results, radiology results, the need for outpatient follow up, to return to the emergency department if symptoms worsen or persist or if there are any questions or concerns that arise at home. Response to treatment: the patient's symptoms have resolved after treatment, the patient's blood pressure is in an acceptable range, mental status has returned to baseline, the patient no longer shows bradycardia, the patient is not short of breath, the patient is not tachycardic, the patient's pain is gone, the patient's temperature has normalized. 03:25 Patient medically screened. [facility] 12/24 23:52 Order name: CBC with Diff; Complete Time: 00:42 12/24 23:52 Order name: CMP; Complete Time: 00:42 12/24 23:52 Order name: Lipase; Complete Time: 00:42 12/25 00:14 Order name: Urine Dipstick-Ancillary; Complete Time: 00:42 EDMS 12/25 00:14 Order name: Urine --Ancillary (enter results); Complete Time: 00:42 mw2 12/25 00:44 Order name: CT Stone Protocol [facility] 12/24 23:52 Order name: IV Saline Lock; Complete Time: 00:05 12/24 23:52 Order name: Labs collected and sent; Complete Time: 00:05 12/24 23:57 Order name: Urine Dipstick-Ancillary (obtain specimen); Complete Time: 00:13 3 12/24 23:57 Order name: Urine Test (obtain specimen); Complete Time: 00:13 3 Administered Medications: 00:37 Drug: morphine 4 mg Route: IVP; Infused Over: 4 mins; Site: left antecubital; 3 00:37 Follow up: Response: No adverse reaction 3 00:37 Drug: Zofran (Ondansetron) 4 mg Route: IVP; Site: left antecubital; 3 00:37 Follow up: Response: No adverse reaction 3 01:27 Drug: NS 0.9% 1000 ml Route: IV; Rate: 1000 ml; Site: left antecubital; 3 03:00 Follow up: IV Status: Completed infusion; IV Intake: 1000ml lp1 Disposition Summary: 12/25/21 03:25 Discharge Ordered Location: Home [facility] Problem: new [facility] Symptoms: have improved [facility] Condition: Stable [facility] Diagnosis - Flank Pain [facility] Followup: [facility] - With: Private Physician - When: 1 - 2 days - Reason: Worsening of condition, Recheck today's complaints, Continuance of care, Re-evaluation by your physician Discharge Instructions: - Discharge Summary Sheet [facility] - Flank Pain, Adult, [id number] [facility] Forms: - Medication Reconciliation Form [facility] - Thank You Letter [facility] - Antibiotic Education [facility] - Prescription Opioid Use [facility] Prescriptions: - ketorolac 10 mg Oral tablet - take 1 tablet by ORAL route every 6-8 hours As needed not to exceed 40 mg in [facility] 24hrs; 15 tablet; Refills: 0, Product Selection Permitted Signatures: Dispatcher [employer] Tarsha Mccabe RN RN bb Valdemar Sibley RN RN jb4 Peggy Frausto RN RN lg3 Zaid Foy MD MD 7 Jessica Rodrigues RN lp1
[2021-12-25 03:45] VITALS: TEMP 97.4
[2021-12-25 03:46] VITALS: O2SAT 100
[2021-12-25 03:48] VITALS: BP 132/84
--- NOTE | 2021-12-25 14:10 | RAD REPORT ---
EXAM DESCRIPTION: Stone Protocol 12/25/2021 1:41 AM CDT CLINICAL HISTORY: 26 years, Female, Flank pain, kidney stone suspected COMPARISON: None. TECHNIQUE: Multiple transaxial tomograms of the abdomen and pelvis were performed from the lung base s to the symphysis pubis 3 mm slice thickness at 3 mm interval reconstruction, without administration of IV and oral contrast. Multiplanar reformats in the sagittal and coronal plane were generated and reviewed. This exam was performed according to our departmental dose-optimization protocol, which includes auto mated exposure control, adjustment of the mA and/or kV according to patient size and/or use of iterat anam reconstruction technique. FINDINGS: The lack of IV and oral contrast limits evaluation of solid organs, subtle lesions cannot be excluded. The lung bases demonstrate to be clear. Grossly the unopacified liver, gallbladder, pancreas, spleen and adrenal glands demonstrate to be wit hin normal limits, no significant focal lesions were identified. The kidneys demonstrate grossly unremarkable. There is no evidence for nephrolithiasis and/or hydro nephrosis. No focal masses were demonstrated. The ureters displays normal appearance with normal caliber, no hydroureter was seen. Grossly the unopacified stomach, small bowel and large bowel demonstrate to be within normal limits. There is no evidence for bowel dilatation/or free air. The appendix is normal. The urinary bladder demonstrate to be within normal limits. The uterus demonstrate to be within [place] l limits. There is a right adnexal cystic structure measuring 2.8 x 2.8 cm on image 110. The aorta de monstrate to be within normal limits. There is no retroperitoneal lymphadenopathy. There is no ev idence for ascites. The rest of the soft tissue demonstrate to be grossly unremarkable. IMPRESSION: No evidence for nephrolithiasis and/or hydronephrosis. 2.8 cm right adnexal simple-appearing cyst. No follow-up imaging is recommended. Electronically signed by: Jerod Lynne MD 12/25/2021 1:44 AM CDT Due to temporary technical issues with the PACS/Fluency reporting system, reports are being signed by the in house radiologist without review as a courtesy to ensure prompt reporting. The interpreting r adiologist is fully responsible for the content of the report.
== END 2021-12-25 03:36 | disposition home or self-care (01) ==
LOC: ER 22:05
DX: R10.9 Unspecified abdominal pain (principal); F17.210 Nicotine dependence, cigarettes, uncomplicated; Z91.010 Allergy to peanuts
CPT/HCPCS: 36415; 74176; 76377; 80053; 81003; 81025; 83690; 85025; 96361; 96374; 96375; 99284; J2405; J7030

== ENCOUNTER 2022-02-18 10:47 | Emergency (ER) | payer SELFPAY ==
[2022-02-18] MEDS ORDERED: LORazepam 2 MG/ML VIAL ONE (11:25)
[2022-02-18 11:34] LABS: Urine Blood Trace-intact (Negative); Urine Glucose Negative (Negative); Urine Protein 1+ (Negative); Urine Specific Gravity >=1.030 (1.005-1.030); Urine pH 5.5 (5.0-7.0)
--- OUTSIDE RECORDS SUMMARY | 2022-02-18 11:34 | XMS REPORT | Continuity of Care Document ---
:1995 Author Organization [facility] t Address [address] [place] [address] [address] [place] [address] Care Team Providers Name Role Phone Visit, Jonn Nurse Attending Clinician Unavailable Audrey Yousif Attending Clinician [phone] AUDREY GOMES Attending Clinician Unavailable Doctor Unassigned, [place] Attending Clinician Unavailable Payers Payer Name Policy Type Policy Number Effective Date Expiration Date [facility] [id number] 2013 PPO/POS 00:00:00 Problems Condition Condition Condition Status Onset Resolution Last Treating Co mments Source Name Details Category Date Date Treatment Clinician Date Abnormal Abnormal Disease Active Overview: 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 Papanicola 00:00: 11/2014, [place] ou smear ou smear 00 repeat Medica l of cervix of cervix pap Bran ch 11/2015 Screening Screening Disease Active Overview: Univers for STD for STD 11-25 ICD10 ity of (sexually (sexually 00:00: Diagnosis [place] transmitte transmitte 00 Term Me dical d disease) d disease) [employer]ha[employer] Branch Utility Tobacco Tobacco Disease Active Univers use use 11-25 ity of disorder disorder 00:00: [address] Branch No known No known Disease Unive rs active active ity of problems problems [facility] Allergies, Adverse Reactions, Alerts Allergy Allergy Status Severity Reaction(s) Onset Inactive Treating Comm ents Source Name Type Date Date Clinician TREE Food Active Anaphylaxis Unive rs NUTS 11-24 ity of 00:00: [facility] Tree Propensi Active Anaphylaxis Uni vers Nuts ty to 11-24 ity of adverse 00:00: [place] [facility] NO KNOWN Drug Active Univers ALLERGIE Class ity of S [facility] Social History Social Habit Start Date Stop Date Quantity Comments Source History of Cigarette Smoker Universi ty of tobacco use [facility] Tobacco Comment 1pkg every 1/2 Unive rsity of days/ pt states [place] [facility] ical she is trying to [facility] Exposure to Not sure [facility] SARS-CoV-2 [facility] (event) [place] Tobacco use and 2020-06-11 2020-06-11 Never used Universit y of exposure 00:00:00 00:00:00 [facility] Alcohol intake 2020-06-11 2020-06-11 Current University 00:00:00 00:00:00 non-drinker of [facility] alcohol (finding) [place] Alcohol Comment 2014-02-10 2014-02-10 on occasion Universi ty of 00:00:00 00:00:00 [facility] Smoking Status Start Date Stop Date Source Current every day smoker 2020-06[facility]11 [facility] Ordered Filled Start Stop Current Ordering Indication Dosage Frequency Signature Comments Components Source Medication Medication Date Date Medication? Clinician (SIG) Name Name permethrin 2015-07 Yes Apply head U nivers (ELIMITE) 5 1-30 to toe, ity o f % cream 00:00: leave on [place] 00 for 12 Medical hours, Branch then rinse off in shower. Reapply in 2 weeks if needed. No known No Univers medications [facility] Immunizations Ordered Filled Immunization Date Status Comments Sourc e Immunization Name Name TDAP 2014-08-29 Completed [facility] 00:00:00 [facility] Vital Signs Vital Name Observation Time Observation Value Comments Source Systolic blood 2020-06-11 20:40:00 120 mm[Hg] Univer sity of pressure [facility] Diastolic blood 2020-06-11 20:40:00 78 mm[Hg] Unive rsity of pressure [facility] Heart rate 2020-06-11 20:40:00 98 /min Universi [facility] Body temperature 2020-06-11 20:40:00 37 Rhonda [facility] Respiratory rate 2020-06-11 20:40:00 16 /min [facility] Body height 2020-06-11 20:40:00 157.5 cm Universi [facility] Body weight 2020-06-11 20:40:00 73.086 kg [facility] BMI 2020-06-11 20:40:00 29.47 kg/m2 [facility] Procedures Procedure Date / Time Performed Performing Clinician Jennifer pham POCT TEST 2020-06-11 20:42:00 Braxton Lezama [facility] ASSIGNMENT OF BENEFITS 2020-06-11 20:20:21 Doctor Unassigned, No [facility] Encounters Start End Encounter Admission Attending Care Care Encounter Source Date/Time Date/Time Type Type Clinicians Facility Department ID 2020-06-11 2020-06-11 Nurse Visit, EllenRmchp Nurse [facility] [id number] Univers 14:31:51 15:00:48 Visit Audrey Gomes LEAD CONSULTANT [id number] ity [facility] [id number] Eusebio as MATERNAL [id number] Med ical & CHILD [address] [place] [address] 2020-06-11 2020-06-11 Outpatient R MIREYA, [facility] [id number] Univers 14:45:00 14:45:00 AUDREY moreno o f [facility] 2020-06-11 2020-06-11 Outpatient R SURINDERASHUTOSH, [facility] [id number] Univers 14:30:00 14:30:00 AUDREY moreno o f [facility] 2020-06-11 2020-06-11 Outpatient [facility] [id number] Univers 14:30:00 14:30:00 [id number] ity of [facility] 2020-06-11 2020-06-11 Orders Doctor MEÑO [id number] Univers 00:00:00 00:00:00 Only Unassigned, AMY [id number] ity of [facility] [id number] Eusebio as [id number] [address] Results Test Description Test Time Test Comments Results Result Comments Source POCT TEST 2020-06-11 20:42:00 Test Item Value Reference Range Interpretation Comme nts POCT PREG (test code = 1605) Negative On board controls acceptable with C Line (test code = 3574) Yes POCT PREG LOT # (test code = 3575) POCT PREG TEST DATE (test code = 3576) [facility]
--- NOTE | 2022-02-18 12:01 | RAD REPORT ---
EXAM DESCRIPTION: CT - CTHCSPWOC - 02/18/2022 11:37 am CLINICAL HISTORY: headache, radiculopathy COMPARISON: No comparisons TECHNIQUE: Axial 5 mm thick images of the head were obtained. Axial 2 mm thick images of the cervic al spine were obtained with sagittal and coronal reconstruction images generated and reviewed. All CT scans are performed using dose optimization technique as appropriate and may include automated exposure control or mA/KV adjustment according to patient size. FINDINGS: No intracranial hemorrhage, mass, edema or acute intracranial finding. No suspicion for ac [place] infarction. No extra-axial fluid collections. Mastoid air cells and paranasal sinuses are clear o f acute disease. There is a polyp or retention cyst along the floor of the right maxillary sinus. No globe or orbit abnormality seen. Cervical body height and alignment are normal. No disk space narrowing. No fracture or acute bony abn ormality. Central canal detail is inherently limited. No paraspinal mass or hematoma. IMPRESSION: Negative CT head examination for acute or significant finding. Negative CT cervical spine examination for acute or significant finding.
[2022-02-18 13:27] LABS: Absolute Lymphocytes (CBC) 2.4 K/uL (0.7-4.9); Lymphocytes % 21.8 % (15.3-44.8); MCV 86.3 fL (80-100); MPV 8.3 fL (7.6-11.3); RBC Red Blood Cell Count 5.33 M/uL (3.86-4.86)
[2022-02-18 13:35] LABS: Potassium 3.3 mmol/L (3.5-5.1)
[2022-02-18 17:51] VITALS: TEMP 97.8; O2SAT 100
[2022-02-18 17:53] VITALS: BP 117/73
--- NOTE | 2022-02-19 10:14 | EDPHYS ---
Physician Documentation [facility] Name: Aric Banda Age: 27 yrs Sex: Female : 1995 Arrival Date: 02/18/2022 Time: 10:48 Bed 24 Private MD: Micha Cowart HPI: 02/18 11:13 This 27 yrs old Female presents to ER via Ambulatory with complaints of Numbness Of m Hand, Numbness Of Arm, sweaty. 11:13 This is a 27-year-old female with history of asthma the presents emerged department [facility] with complaints of tingling and numbness to both of her arms extending from the shoulder down bilaterally. Patient states she awoke to the sensation today. Also complains of similar sensation to her legs but not as severe. Patient does have a mild headache as well. Patient states she also noticed discoloration in her hands for the first time as well. Denies unilateral weakness or difficulty with her speech. 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 - Social history:: Smoking status: Patient reports the use of cigarette tobacco products, 1/4 ppd. ROS: 11:13 Constitutional: Negative for fever, chills, and weight loss, Cardiovascular: Negative [facility] for chest pain, palpitations, and edema, Respiratory: Negative for shortness of breath, cough, wheezing, and pleuritic chest pain. 11:13 MS/extremity: Positive for paresthesias. 11:13 Neuro: Positive for numbness. 11:13 All other systems are negative. Exam: 11:13 Constitutional: This is a well developed, well nourished patient who is awake, alert, jmm and in no acute distress. Head/Face: atraumatic. Eyes: EOMI, no conjunctival erythema appreciated ENT: Moist Mucus Membranes Neck: Trachea midline, Supple Chest/axilla: Normal chest wall appearance and motion. Cardiovascular: Regular rate and rhythm. No edema appreciated Respiratory: Normal respirations, no respiratory distress appreciated Abdomen/GI: Non distended Back: Normal ROM Skin: General appearance color normal MS/ Extremity: Moves all extremities, no obvious deformities appreciated, no edema noted to the lower extremities Neuro: Awake and alert Psych: Behavior is normal, Mood is normal, Patient is cooperative and pleasant 11:13 Musculoskeletal/extremity: Full range of motion appreciated to the right and left shoulder, elbow, and wrist. 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 Slight bluish discoloration noted to the hands, less than 2 seconds cap refill to all the fingers bilaterally., Neurovascular intact. Vital Signs: 10:52 BP 158 / 103; Pulse 120; Resp 16; Temp 97.8; Pulse Ox 100% on R/A; Weight 57.15 kg; iw Height 5 ft. 3 in. (160.02 cm); 13:53 BP 117 / 73; Pulse 71; Resp 16; Pulse Ox 100% on R/A; king 10:52 Body Mass Index 22.32 (57.15 kg, 160.02 cm) iw MDM: 11:13 Patient medically screened. [facility] 14:47 Data reviewed: vital signs, nurses notes. Counseling: I had a detailed discussion with maya the patient and/or guardian regarding: the historical points, exam findings, and any diagnostic results supporting the discharge/admit diagnosis, lab results, radiology results, the need for outpatient follow up, to return to the emergency department if symptoms worsen or persist or if there are any questions or concerns that arise at home. 02/18 11:14 Order name: CBC with Diff; Complete Time: 13:[address] [facility] 02/18 11:14 Order name: BMP; Complete Time: 13:[address] [facility] 02/18 11:14 Order name: CT Head C Spine; Complete Time: 12:[address] [facility] 02/18 11:35 Order name: Urine Dipstick-Ancillary; Complete Time: 11:37 [facility] 02/18 11:14 Order name: Saline Lock; Complete Time: 11:[address] [facility] 02/18 11:14 Order name: Urine Dipstick-Ancillary (obtain specimen); Complete Time: 11:[address] [facility] 02/18 11:14 Order name: Urine Test (obtain specimen); Complete Time: 11:[address] [facility] Administered Medications: 11:39 Drug: Ativan (LORazepam) 1 mg Route: IVP; Site: left antecubital; king Disposition Summary: 02/18/22 14:48 Discharge Ordered Location: Home jm Condition: Stable jmm Diagnosis - Paresthesias of the Skin [facility] Followup: jmm - With: Davin Barber MD - When: 2 - 3 days - Reason: Recheck today's complaints, Continuance of care, Re-evaluation by your physician Discharge Instructions: - Discharge Summary Sheet jm - Paresthesia jm Forms: - Medication Reconciliation Form [facility] - Thank You Letter [facility] - Antibiotic Education [facility] - Prescription Opioid Use [facility] Prescriptions: - Medrol (Lázaro) 4 mg Oral Tablets, Dose Pack - take 1 tablet by ORAL route as directed - follow package instructions; 1 jmm packet; Refills: 0, Product Selection Permitted - orphenadrine citrate 100 mg Oral Tablet Sustained Release - take 1 tablet by ORAL route 2 times per day As needed; 20 tablet; Refills: 0, jmm Product Selection Permitted Signatures: Dispatcher [employer] Francisco Medellin PA PA jmm Williams, Irene, RN RN Vikki Moise RN RN
--- NOTE | 2022-02-19 10:14 | ER ---
Nurse's Notes [facility] Name: Aric Banda Age: 27 yrs Sex: Female : 1995 Arrival Date: 02/18/2022 Time: 10:48 Bed 24 Private MD: Diagnosis: Paresthesias of the Skin Presentation: 02/18 10:52 Chief complaint: Patient states: i woke up at 0930 and my arms and hands were iw completely numb and tingly and twitchy and discolored , also has a headache and fatigue, has not been able to eat , no vomiting but gets very nauseous , is able to tolerate fluids but even water makes her nauseous. Coronavirus screen: Client presents with at least one sign or symptom that may indicate coronavirus-19. Ebola Screen: Patient negative for fever greater than or equal to 101.5 degrees Fahrenheit, and additional compatible Ebola Virus Disease symptoms Patient denies exposure to infectious person. Patient denies travel to an Ebola-affected area in the 21 days before illness onset. No symptoms or risks identified at this time. Initial Sepsis Screen: Does the patient meet any 2 criteria? No. Patient's initial sepsis screen is negative. Does the patient have a suspected source of infection? No. Patient's initial sepsis screen is negative. Risk Assessment: Do you want to hurt yourself or someone else? Patient reports no desire to harm self or others. Onset of symptoms was February 18, 2022. 10:52 Method Of Arrival: Ambulatory iw 10:52 Acuity: SIERRA 3 iw Triage Assessment: 13:52 General: Appears in no apparent distress. Behavior is agitated. 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 - Social history:: Smoking status: Patient reports the use of cigarette tobacco products, 1/4 ppd. Screenin:40 Abuse screen: Denies threats or abuse. Denies injuries from another. Nutritional king screening: No deficits noted. Tuberculosis screening: No symptoms or risk factors identified. Fall Risk None identified. Assessment: 11:40 General: Appears in no apparent distress. Behavior is anxious. Pain: Denies pain. king Musculoskeletal: Range of motion: intact in all extremities, Reports numbness in right arm and left arm. Vital Signs: 10:52 BP 158 / 103; Pulse 120; Resp 16; Temp 97.8; Pulse Ox 100% on R/A; Weight 57.15 kg; iw Height 5 ft. 3 in. (160.02 cm); 13:53 BP 117 / 73; Pulse 71; Resp 16; Pulse Ox 100% on R/A; king 10:52 Body Mass Index 22.32 (57.15 kg, 160.02 cm) ED Course: 10:48 Patient arrived in ED. am2 10:55 Triage completed. iw 10:57 Francisco Nance PA is PHCP. [facility] 10:57 Micha Mcknight MD is Attending Physician. m 10:57 Arm band placed on. iw 10:59 Vikki Moise, RUBY is Primary Nurse. king 11:38 CT Head C Spine In Process Unspecified. EDMS 11:40 Patient has correct armband on for positive identification. Bed in low position. king 11:40 No provider procedures requiring assistance completed. Inserted saline lock: 20 gauge king in left antecubital area, using aseptic technique. 14:47 Davin Barber MD is Referral Physician. [facility] 15:17 IV discontinued, intact, Pressure dressing applied. king Administered Medications: 11:39 Drug: Ativan (LORazepam) 1 mg Route: IVP; Site: left antecubital; king Medication: 11:41 VIS not applicable for this client. king Outcome: 14:48 Discharge ordered by . [facility] 15:16 Discharged to home ambulatory. king 15:16 Condition: good 15:16 Discharge instructions given to patient, Prescriptions given X 2. 15:17 Patient left the ED. king Signatures: Dispatcher [employer] EDMS Francisco Nance PA PA jmm Williams, Irene, RN RN Gina Hsu am2 Vikki Moise RN RN king
== END 2022-02-18 15:17 | disposition home or self-care (01) ==
LOC: ER 10:47
DX: R20.2 Paresthesia of skin (principal); R20.0 Anesthesia of skin; Z72.0 Tobacco use; Z91.010 Allergy to peanuts
CPT/HCPCS: 36415; 70450; 72125; 80048; 81003; 85025; 96374; 99284

== ENCOUNTER → 2023-08-24 | Emergency (ER) | payer OTHER ==
--- NOTE | 2023-08-24 21:35 | RAD REPORT ---
EXAM DESCRIPTION: CT - Head Brain Wo Cont - 08/24/2023 9:07 pm CLINICAL HISTORY: HEADACHE COMPARISON: No comparisons TECHNIQUE: Noncontrast head CT images were obtained without IV contrast. Multiplanar reformats were generated and reviewed. All CT scans are performed using dose optimization technique as appropriate and may include automated exposure control or mA/KV adjustment according to patient size. FINDINGS: No intracranial hemorrhage, mass, or edema. Midline structures are unremarkable. Normal ventricular caliber for age. Cooper-white matter differentiation is preserved, without evidence of acute infarct. No abnormal extra- axial fluid collections. Mastoid air cells and visualized portions of the paranasal sinuses are clear. No acute bony findings. IMPRESSION: No evidence of an acute intracranial process.
--- NOTE | 2023-08-24 21:38 | ER ---
Nurse's Notes [facility] Name: Aric Banda Age: 28 yrs Sex: Female : 1995 Arrival Date: 08/24/2023 Time: 20:02 Bed 10 Private MD: Diagnosis: Headache Presentation: 08/24 20:06 Chief complaint: Patient states: NOTICED AT SMALL BUMP ON BACK OF HEAD 5 DAYS AGO. NO jj7 FALLS OR TRAUMA TO IT. HAS RINGING IN HER EAR. THINKS IT'S RELATED TOT HE BUMP. Coronavirus screen: At this time, the client does not indicate any symptoms associated with coronavirus-19. Ebola Screen: No symptoms or risks identified at this time. Initial Sepsis Screen: Does the patient meet any 2 criteria? No. Patient's initial sepsis screen is negative. Does the patient have a suspected source of infection? No. Patient's initial sepsis screen is negative. Risk Assessment: Do you want to hurt yourself or someone else? Patient reports no desire to harm self or others. 20:06 Method Of Arrival: Ambulatory [facility] 20:06 Acuity: SIERRA 4 jj7 Triage Assessment: 20:17 General: Appears in no apparent distress. comfortable, Behavior is calm, cooperative, jj7 appropriate for age. Pain: Complains of pain in scalp. 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 Flu vaccine is not up to date. - Social history:: Smoking status: Patient reports the use of cigarette tobacco products, smokes one-half pack cigarettes per day, Reported history of juuling and/or vaping. Patient/guardian denies using alcohol, street drugs. Screenin:18 [facility] ED Fall Risk Assessment (Adult) History of falling in the last 3 months, jj7 including since admission No falls in past 3 months (0 pts) Confusion or Disorientation No (0 pts) Intoxicated or Sedated No (0 pts) Impaired Gait No (0 pts) Mobility Assist Device Used No (0 pt) Altered Elimination No (0 pt) Score/Fall Risk Level 0 - 2 = Low Risk Oriented to surroundings, Maintained a safe environment, Educated pt \T\ family on fall prevention, incl call for assistance when getting out of bed. Abuse screen: Denies threats or abuse. Nutritional screening: No deficits noted. Tuberculosis screening: No symptoms or risk factors identified. Assessment: 20:20 General: SEE TRIAGE NOTE. bp Vital Signs: 20:06 BP 135 / 82; Pulse 79; Resp 17; Temp 97; Pulse Ox 100% ; Weight 54.43 kg; Height 5 ft. jj7 3 in. ; Pain 2/10; 20:06 Body Mass Index 21.26 (54.43 kg, 160.02 cm) jj7 20:06 Pain Scale: Adult j Rudolph Coma Score: 21:50 Eye Response: spontaneous(4). Motor Response: obeys commands(6). Verbal Response: kb oriented(5). Total: 15. ED Course: 20:03 Patient arrived in ED. jj6 20:09 Lizette Simon FNP-C is [facility]. kb 20:09 Micha Mcknight MD is Attending Physician. kb 20:17 Triage completed. jj7 20:17 Arm band placed on right wrist. jj7 20:18 Patient has correct armband on for positive identification. jj7 20:32 Gurvinder Hermosillo, RN is Primary Nurse. bp 21:08 CT Head Brain wo Cont In Process Unspecified. EDMS 21:46 No provider procedures requiring assistance completed. Patient did not have IV access bp during this emergency room visit. 21:47 Provided Education on: N/A. bp Administered Medications: No medications were administered Outcome: 21:37 Discharge ordered by . kb 21:46 Discharged to home ambulatory, with family, bp 21:46 Condition: stable 21:46 Discharge instructions given to patient, Instructed on discharge instructions, follow up and referral plans. Demonstrated understanding of instructions, follow-up care, 21:47 Patient left the ED. bp Signatures: Dispatcher [employer] EDMS Lizette Simon FNP-C FNP-Gurvinder Abreu, RN RN bp Kimberly Malin jj6 Supriya England RN RN jj7
--- NOTE | 2023-08-24 21:38 | EDPHYS ---
Physician Documentation [facility] Name: Aric Banda Age: 28 yrs Sex: Female : 1995 Arrival Date: 08/24/2023 Time: 20:02 Bed 10 Private MD: DEMARCUS Physician Micha Mcknight HPI: 08/24 21:49 This 28 yrs old Female presents to ER via Ambulatory with complaints of SUSPICIOUS BUMP kb ON BACK OF HEAD-PT DENIES ANY FALL OR INJURY. 21:49 Patient is a 28-year-old female who presents for a bump on the back of her head that kb she noticed 5 days ago. States since then she has had increased headache and ringing in the ears. States she normally has ringing in her ears whenever it is really quiet but she has been noticing it more when there is noise now.. 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 Flu vaccine is not up to date. - Social history:: Smoking status: Patient reports the use of cigarette tobacco products, smokes one-half pack cigarettes per day, Reported history of juuling and/or vaping. Patient/guardian denies using alcohol, street drugs. ROS: 21:49 Constitutional: Negative for fever, chills, and weight loss, kb 21:49 ENT: Positive for tinnitus, 21:49 Neuro: Positive for headache, 21:49 All other systems are negative, Exam: 21:49 Constitutional: This is a well developed, well nourished patient who is awake, alert, kb and in no acute distress. Head/Face: Normocephalic, atraumatic. Eyes: Pupils equal round and reactive to light, extra-ocular motions intact. Lids and lashes normal. Conjunctiva and sclera are non-icteric and not injected. Cornea within normal limits. Periorbital areas with no swelling, redness, or edema. ENT: Moist Mucous membranes Cardiovascular: Regular rate Respiratory: Respirations even and unlabored. No increased work of breathing. Talking in full sentences Abdomen/GI: Soft, non-tender. No distention Skin: Warm, dry with normal turgor. Normal color. MS/ Extremity: Pulses equal, no cyanosis. Neurovascular intact. Full, normal range of motion. Neuro: Awake and alert, GCS 15, oriented to person, place, time, and situation. Moves all extremities. Normal gait. Vital Signs: 20:06 BP 135 / 82; Pulse 79; Resp 17; Temp 97; Pulse Ox 100% ; Weight 54.43 kg; Height 5 ft. jj7 3 in. ; Pain 2/10; 20:06 Body Mass Index 21.26 (54.43 kg, 160.02 cm) [facility] 20:06 Pain Scale: Adult [facility] [place] Coma Score: 21:50 Eye Response: spontaneous(4). Motor Response: obeys commands(6). Verbal Response: kb oriented(5). Total: 15. MDM: 20:10 Patient medically screened. kb 21:50 Differential diagnosis: migraine, tension headache, ICH, abscess. Data reviewed: vital kb signs, nurses notes. Counseling: I had a detailed discussion with the patient and/or guardian regarding the historical points, exam findings, and any diagnostic results supporting the discharge/admit diagnosis, radiology results, the need for outpatient follow up, a neurologist, to return to the emergency department if symptoms worsen or persist or if there are any questions or concerns that arise at home. ED course: No abscess, erythema, swelling noted to back of head. 08/24 20:21 Order name: CT Head Brain wo Cont; Complete Time: 21:36 kb Administered Medications: No medications were administered Disposition Summary: 08/24/23 21:37 Discharge Ordered Notes: Location: Home kb Condition: Stable kb Diagnosis - Headache kb Followup: kb - With: Emergency Department - When: As needed - Reason: Worsening of condition Followup: kb - With: Private Physician - When: 2 - 3 days - Reason: Recheck today's complaints, Continuance of care, Re-evaluation by your physician Discharge Instructions: - Discharge Summary Sheet kb - General Headache Without Cause, [id number] kb Forms: - Medication Reconciliation Form kb - Thank You Letter kb - Antibiotic Education kb - Prescription Opioid Use kb - Patient Portal Instructions kb - Leadership Thank You Letter kb Signatures: Dispatcher [employer] EDMS Lizette Simon FNP-C SUPERVISOR CIGAR PROCESSING-Ckb Supriya England, RN RN jj7
[2023-08-25 15:13] VITALS: BP 135/82; TEMP 97; O2SAT 100
== END ==
LOC: ER 20:02
DX: R51.9 Headache, unspecified (principal); R22.0 Localized swelling, mass and lump, head; F17.210 Nicotine dependence, cigarettes, uncomplicated; Z91.010 Allergy to peanuts
CPT/HCPCS: 70450